=== PATIENT | female | born 1965 | race Caucasian/White ===

== ENCOUNTER 2024-11-19 05:56 | Day surgery (SDC) | payer OTHER ==
[2024-11-19 06:55] LABS: Absolute Neutrophil Ct (ANC) 3.14 x10^3/uL (1.56-6.13); BASOPHIL % 0.8 % (0.1-1.2); Basophil (Absolute #) 0.05 x10^3/uL (0.01-0.08); Eosinophil % 13.5 % (0.7-5.8); Hematocrit 37.7 % (34.1-44.9); Hemoglobin 12.8 g/dL (11.2-15.7); IMMATURE GRAN # 0.01 x10^3u/L (0.001-0.031); IMMATURE GRAN % 0.2 % (0.001-0.429); Lymphocyte (Absolute #) 1.44 x10^3/uL (1.18-3.74); Lymphocytes % 24.2 % (19.3-51.7); Mean Cell Volume 84.2 fL (79.4-94.8); Mean Corpuscular Hemoglobin 28.6 pg (25.6-32.2); Mean Platelet Volume 9.6 fL (9.4-12.3); Monocytes % 8.4 % (4.7-12.5); Neutrophil % 52.9 % (34.0-71.1); Platelet Count 201 x10^3/uL (182-369); Red Blood Count 4.48 x10^6/uL (3.93-5.22); Red Cell Distribution Width 12.7 % (11.7-14.4); White Blood Count 5.9 x10^3/uL (3.98-10.04)
[2024-11-19] MEDS: CEFAZOLIN 2 GM/100 ML NaCl 2 GM/100 ML IVPB IV SCH (06:56)
[2024-11-19] MEDS: Lactated Ringers 1,000 ML IV SCH (06:56)
[2024-11-19 07:07] LABS: ANION GAP 12.9 MEQ/L (5-15); Calcium 9.8 mg/dL (8.4-10.2); Creatinine 1 0.92 mg/dL (0.52-1.04); EST GLOMERULAR FILTRATION RATE 70.8 ML/MIN; Potassium 3.7 mmol/L (3.5-5.1)
[2024-11-19] MEDS ORDERED: TORAdol 30 mg Injection ONE (07:51)
[2024-11-19] MEDS ORDERED: dexAMETHasone sodium phosphate ONE (07:51)
[2024-11-19] MEDS ORDERED: Versed 2 MG/2 ML Injection ONE (07:51)
[2024-11-19] MEDS ORDERED: Xylocaine-Mpf 2% 5 Ml Vial ONE (07:51)
[2024-11-19] MEDS ORDERED: SUBLIMAZE 100 MCG/2 ML ONE (07:51)
[2024-11-19] MEDS ORDERED: propofoL IV ONE (07:51)
[2024-11-19] MEDS ORDERED: Zofran 4 MG/2 ML VIAL ONE (07:51)
[2024-11-19] MEDS ORDERED: Xylocaine 1% Vial 30 ML PF IJ ONE (08:03)
[2024-11-19] MEDS ORDERED: PHENYLEPHRINE HCL ONE (08:11)
[2024-11-19 09:42] VITALS: RESP 18; O2SAT 100
[2024-11-19 09:54] VITALS: BP 145/75; PULSE 67; TEMP 97.2
--- NOTE | 2024-11-20 18:49 | OP ---
SURGERY DATE/TIME: 11/19/2024 [id number] PREOPERATIVE DIAGNOSIS: Left carpal tunnel syndrome. POSTOPERATIVE DIAGNOSIS: Left carpal tunnel syndrome. PROCEDURE: Left carpal tunnel release. SURGEON: Siva Barnett II, DO. ANESTHESIA: General. DESCRIPTION OF PROCEDURE AND FINDINGS: The patient was identified and informed consent was obtained. The patient was taken to the operative suite where a general anesthetic was administered. Once an appropriate level of anesthesia had been obtained, tourniquet was placed high on the left upper extremity which was then prepped and draped in the usual sterile fashion. A standard time-out was taken. At this point, an incision was carried out from the distal wrist crease to the level of the fully abducted thumb web space just ulnar to the thenar crease. Skin was incised. Dissection was carried out through the subcutaneous tissue. Heiss retractors were positioned proximally and distally, and a Ragnell retractor was placed proximally under the skin and subcutaneous tissue. At this point, dissection was carried out through the superficial palmar fascia and the retractors were then repositioned. At this point, a fresh #15 blade was utilized to resect the transverse carpal ligament. Care was taken to stay on the far ulnar side of the wound. The nerve was noted to be on the far radial side of the wound. The nerve was noted to be somewhat flattened and hourglass shaped and slightly hyperemic. The motor branch was inspected. The floor was inspected. No masses or cysts. The antebrachial fascia was then split proximally for a distance of about 2 cm under direct vision such that the oil field operator's fingertip could be placed into the canal. The wound was then copiously irrigated and closed with interrupted 5-0 nylon suture. Adaptic, 4 x 4's, and a Yoni dressing applied. The patient was transferred to the cart and taken to the recovery room in satisfactory condition, having tolerated the procedure well.
== END 2024-11-19 10:08 | disposition home or self-care (01) ==
LOC: SDC 05:56
PROVIDERS: ATTEND Orthopaedic Surgery
DX: G56.02 Carpal tunnel syndrome, left upper limb (principal); E11.9 Type 2 diabetes mellitus without complications; Z85.3 Personal history of malignant neoplasm of breast
CPT/HCPCS: 36415; 64721; 80048; 82947; 85025; J0690; J1100; J1885; J2250; J2371; J2405; J2704; J3010

== ENCOUNTER 2025-01-17 16:19 | Observation (INO) | payer OTHER ==
[2025-01-17] MEDS ORDERED: SUBLIMAZE 100 MCG/2 ML ONE ×2 (16:31→19:59)
[2025-01-17] MEDS ORDERED: Zofran 4 MG/2 ML VIAL ONE (16:31)
[2025-01-17] MEDS: SUBLIMAZE 100 MCG/2 ML IV ONE ×2 (16:35→20:01)
[2025-01-17] MEDS: Zofran 4 MG/2 ML VIAL IV ONE (16:35)
[2025-01-17] MEDS ORDERED: Sodium Chloride 0.9% 1000 ML 1,000 ML ONE ×2 (16:36→18:32)
[2025-01-17] MEDS: Sodium Chloride 0.9% 1000 ML 1,000 ML IV STA ×2 (16:36→18:34)
--- NOTE | 2025-01-17 16:41 | ERPHSYRPT ---
- History of Present Illness Time Seen by Provider: 01/17/25 16:38 Historian: patient, family Exam Limitations: no limitations Patient Subjective Stated Complaint: Abdominal pain Physician History: 59-year-old female with multiple medical problems including hypertension, hypothyroidism, diabetes mellitus, breast cancer status post mastectomy/ch emotherapy presented in the ER with complains of left-sided abdominal pain since yesterday morning, continuous, worsening since today, but reports multiple episodes of nonprojectile, nonbilious vomiting without hematemesis. Is unable to hold food/liquids down. Denies any diarrhea or constipation. Feels weak fatigued tired and dehydrated. Allergies/Adverse Reactions: No Known Drug Allergies Allergy (Verified 01/17/25 16:29) Home Medications: Aspirin EC 81 mg [Ecotrin 81 mg] 81 mg PO DAILY 11/01/24 [History] Atorvastatin Calcium 40 mg PO DAILY 11/01/24 [History] Cyanocobalamin (Vitamin B-12) [Vitamin B12] 2,500 mcg PO DAILY 11/01/24 [History] Gabapentin [Neurontin ] 300 mg PO BID 11/01/24 [History] Glipizide 10 mg [Glucotrol 10 MG] 10 mg PO DAILY 11/01/24 [History] Levothyroxine Sodium 25 Mcg [Synthroid 25 Mcg] 50 mcg PO 2HRPRIOR 11/01/24 [History] Magnesium Oxide [Magnesium] 400 mg PO DAILY 11/01/24 [History] Semaglutide [Ozempic] 2 mg PO WEEKLY 11/01/24 [History] Semaglutide [Rybelsus] 14 mg PO BREAKFAST 11/01/24 [History] Liraglutide [Victoza 2-Uriel] 1.8 mg SQ DAILY 11/19/24 [History] Cetirizine HCl [Zyrtec] 10 mg PO DAILY 01/10/25 [History] Dapagliflozin/Metformin HCl [Xigduo Xr 10 mg-1,000 mg Tab] 10 mg PO DAILY 01/10/25 [History] Lisinopril 10 mg [Zestril 10 MG] 10 mg PO DAILY 01/10/25 [History] Hx Influenza Vaccination/Date Given: No Hx Pneumococcal Vaccination/Date Given: No Immunizations Up to Date: Yes Travel Risk - International Travel Have you traveled outside of the country in past 3 weeks: No - Emerging Infectious Disease Are you exhibiting symptoms associated with any current EIDs: No - Review of Systems Constitutional: No Symptoms Ears, Nose, & Throat: No Symptoms Respiratory: No Symptoms Cardiac: No Symptoms Abdominal/Gastrointestinal: Abdominal Pain, Nausea, Vomiting Genitourinary Symptoms: No Symptoms Skin: No Symptoms Neurological: No Symptoms Endocrine: No Symptoms - Past Medical History Pertinent Past Medical History: Yes Neurological History: No Pertinent History ENT History: No Pertinent History Cardiac History: No Pertinent History Respiratory History: No Pertinent History Endocrine Medical History: Diabetes Type II, Hypothyroidism Musculoskeletal History: No Pertinent History GI Medical History: No Pertinent History History: No Pertinent History Psycho-Social History: No Pertinent History Female Reproductive Disorders: Breast Cancer - Past Surgical History Past Surgical History: Yes Neuro Surgical History: No Pertinent History Cardiac: No Pertinent History Respiratory: No Pertinent History Gastrointestinal: No Pertinent History Genitourinary: No Pertinent History Musculoskeletal: Orthopedic Surgery Female Surgical History: Mastectomy, Breast Implant Other Surgical History: bilateral mastectomy. Carpal tunnel surgery left wrist - Social History Smoking Status: Never smoker Exposure to second hand smoke: No Drug Use: none - Social Determinants of Health Will the patient participate in the screening: Yes Do you worry about a steady place to live?: No Do you have any problems with any of the following?: No known problems In the past 12 months,have you had to go without utilities?: No Transportation Issues: No Has anyone in your support network made you feel unsafe?: No Have you or anyone in your house had to go w/o enough food: No - Nursing Vital Signs Nursing Vital Signs: Initial Vital Signs Temperature 97.5 F 01/17/25 16:30 Pulse Rate 116 H 01/17/25 16:30 Respiratory Rate 20 01/17/25 16:30 Blood Pressure 139/72 01/17/25 16:30 O2 Sat by Pulse Oximetry 97 01/17/25 16:30 Pain Scale Pain Intensity 1 - Physical Exam General Appearance: no apparent distress, alert Eye Exam: PERRL/EOMI Ears, Nose, Throat Exam: normal ENT inspection Neck Exam: normal inspection, supple, full range of motion Respiratory Exam: normal breath sounds, lungs clear Cardiovascular Exam: normal heart sounds, tachycardia Gastrointestinal/Abdomen Exam: soft, tenderness (Left side), guarding Back Exam: normal inspection, normal range of motion Neurologic Exam: alert, oriented x 3, cooperative Skin Exam: normal color SpO2 Interpretation: normal SpO2: 97 O2 Delivery: Room Air - Course EKG Interpreted by Me: RATE ([id number]), Sinus Tach, NORMAL AXIS, NORMAL INTERVALS, Q- wave, Non-specific ST Changes Ordered Tests: Active Orders 24 hr Category Date Time Status Code Status Order ROUTINE Care 01/17/25 22:32 Active IV Insertion STAT Care 01/17/25 16:31 Completed NPO (ED) STAT Care 01/17/25 16:[address] in Observation ROUTINE Care 01/17/25 22:32 Active ABDOMEN AND PELVIS W/0 CONTRAS [CT] Stat Exams 01/17/25 16:31 Taken CBC W DIFF Stat Lab 01/17/25 16:35 Completed CMP Stat Lab 01/17/25 16:35 Completed CMP Stat Lab 01/17/25 20:30 Completed LIPASE Stat Lab 01/17/25 16:35 Completed Lactic Acid Stat Lab 01/17/25 19:24 Completed POCT GLUCOSE Stat Lab 01/17/25 21:17 Completed TROPONIN Q4H Lab 01/17/25 16:35 Completed TROPONIN Q4H Lab 01/17/25 20:30 Completed UA W/RFX UR CULTURE Stat Lab 01/17/25 19:40 Completed VBG [VENOUS BLOOD GAS] Stat Lab 01/17/25 17:11 Completed Medication Summary Generic Name Dose Route Start Last Admin Trade Name Freq PRN Reason Stop Dose Admin Acetaminophen 650 mg 01/17/25 22:32 Acetaminophen 325 Mg Tablet PO 02/16/25 22:31 Q6H PRN PRN PAIN AND/OR FEVER Aspirin 81 mg 01/18/25 10:00 Aspirin 81 Mg Tablet.Ec PO 02/17/25 09:59 DAILY [facility] Atorvastatin Calcium 40 mg 01/18/25 10:00 Atorvastatin Calcium 40 Mg Tablet PO 02/17/25 09:59 DAILY [facility] Dextrose 25 ml 01/18/25 04:03 01/18/25 04:06 Dextrose 50%-Water 50 Ml Abboject IV 01/18/25 04:04 25 ml STAT ONE Administration Enoxaparin Sodium 40 mg 01/18/25 10:00 Enoxaparin Sodium 40 Mg/0.4 Ml Syringe SQ 02/17/25 09:59 DAILY [facility] Gabapentin 300 mg 01/18/25 10:00 Gabapentin 300 Mg Capsule PO 02/17/25 09:59 BID [facility] INSULIN REGULAR IN 0.9 % NACL 100 unit in 100 mls @ 3 drops/hr 01/17/25 21:28 01/18/25 04:38 Myxredlin 100 Unit/100 Ml Bag IV 02/16/25 21:27 6 drops/hr .Q24H PRN 6 drops/hr HYPERGLYCEMIA Titration Protocol Potassium Chloride/Dextrose/Sod Cl 1,000 mls @ 125 mls/hr 01/18/25 04:00 01/18/25 04:05 D5w/0.45ns W/ 20meq Kcl 1000 Ml IV 02/17/25 03:59 250 mls/hr .Q8H [facility] Infusion Levothyroxine Sodium 50 mcg 01/17/25 23:30 Levothyroxine Sodium 25 Mcg Tablet PO 02/16/25 23:29 2HRPRIOR [facility] Lisinopril 10 mg 01/18/25 10:00 Lisinopril 10 Mg Tablet PO 02/17/25 09:59 DAILY [facility] Morphine Sulfate 4 mg 01/17/25 23:34 Morphine Sulfate 4 Mg/Ml Injection IV 01/22/25 23:33 Q3H PRN PRN SEVERE PAIN Ondansetron HCl 4 mg 01/17/25 23:34 Ondansetron Hcl 4 Mg/2 Ml Vial IV 02/16/25 23:33 Q6H PRN PRN NAUSEA/VOMITING Senna/Docusate Sodium 1 udtab 01/17/25 23:41 01/18/25 00:32 Senna/Docusate Sodium 1 Udtab Tablet PO 02/16/25 23:40 1 udtab BID [facility] Administration Discontinued Medications Generic Name Dose Route Start Last Admin Trade Name Freq PRN Reason Stop Dose Admin Fentanyl Citrate 50 mcg 01/17/25 16:31 01/17/25 16:35 Fentanyl Citrate 100 Mcg/2 Ml* Vial IV 01/17/25 16:32 50 mcg STAT ONE Administration Fentanyl Citrate Confirm 01/17/25 16:31 Fentanyl Citrate 100 Mcg/2 Ml* Vial Administered 01/17/25 16:32 Dose 100 mcg .ROUTE .STK-MED ONE Fentanyl Citrate 50 mcg 01/17/25 19:55 01/17/25 20:01 Fentanyl Citrate 100 Mcg/2 Ml* Vial IV 01/17/25 19:56 50 mcg STAT ONE Administration Fentanyl Citrate Confirm 01/17/25 19:59 Fentanyl Citrate 100 Mcg/2 Ml* Vial Administered 01/17/25 20:00 Dose 100 mcg .ROUTE .STK-MED ONE Sodium Chloride 1,000 mls @ 999 mls/hr 01/17/25 16:31 01/17/25 18:01 Sodium Chloride 0.9% 1000 Ml IV 01/17/25 17:31 Infused .Q1H1M STA Infusion Sodium Chloride Confirm 01/17/25 16:36 Sodium Chloride 0.9% 1000 Ml Administered 01/17/25 16:37 Dose 1,000 mls @ ud .ROUTE .STK-MED ONE Sodium Chloride 1,000 mls @ 999 mls/hr 01/17/25 18:29 01/17/25 20:16 Sodium Chloride 0.9% 1000 Ml IV 01/17/25 19:29 Infused .Q1H1M STA Infusion Sodium Chloride Confirm 01/17/25 18:32 Sodium Chloride 0.9% 1000 Ml Administered 01/17/25 18:33 Dose 1,000 mls @ ud .ROUTE .STK-MED ONE Dextrose/Sodium Chloride 1,000 mls @ 200 mls/hr 01/17/25 21:30 01/17/25 23:45 Dextrose 5% -0.45 Nacl 1000 Ml IV 02/16/25 21:29 200 mls/hr .Q5H [facility] Infusion Dextrose/Sodium Chloride Confirm 01/17/25 21:37 Dextrose 5% -0.45 Nacl 1000 Ml Administered 01/17/25 21:38 Dose 1,000 mls @ ud IV .STK-MED ONE Ondansetron HCl 4 mg 01/17/25 16:31 01/17/25 16:35 Ondansetron Hcl 4 Mg/2 Ml Vial IV 01/17/25 16:32 4 mg STAT ONE Administration Ondansetron HCl Confirm 01/17/25 16:31 Ondansetron Hcl 4 Mg/2 Ml Vial Administered 01/17/25 16:32 Dose 4 mg .ROUTE .STK-MED ONE Lab/Rad Data: Laboratory Result Diagrams 01/17/25 16:35 01/17/25 20:30 Laboratory Results 01/17/25 01/17/25 01/17/25 Range/Units 21:17 20:30 19:40 WBC (3.98-10.04) x10^3/uL RBC (3.93-5.22) x10^6/uL Hgb (11.2-15.7) g/dL Hct (34.1-44.9) % MCV (79.4-94.8) fL MCH (25.6-32.2) pg MCHC (32.2-35.5) g/dL RDW (11.7-14.4) % Plt Count (182-369) x10^3/uL MPV (9.4-12.3) fL Gran % (34.0-71.1) % Immature Gran % (Auto) (0.001-0.429) % Nucleat RBC Rel Count (0.00-0.2) % Eos # (Auto) (0.04-0.36) x10^3/uL Immature Gran # (Auto) (0.001-0.031) x10^3u/L Absolute Lymphs (auto) (1.18-3.74) x10^3/uL Absolute Monos (auto) (0.24-0.86) x10^3/uL Absolute Nucleated RBC (0.00-0.012) x10^3u/L Lymphocytes % (19.3-51.7) % Monocytes % (4.7-12.5) % Eosinophils % (0.7-5.8) % Basophils % (0.1-1.2) % Absolute Granulocytes (1.56-6.13) x10^3/uL Basophils # (0.01-0.08) x10^3/uL pO2/FiO2 Ratio % VBG pH (7.32-7.42) VBG pCO2 at Pat Temp (42-55) mm/Hg VBG pO2 at Pat Temp (25-40) mm/Hg VBG HCO3 (22-28) meq/L VBG O2 Sat (Teresa) (95-100) VBG Base Excess (-2.0-2.0) VBG Hemoglobin VBG Carboxyhemoglobin (0.0-6.9) % T HGB POC Potassium (3.5-5.1) Sodium 141 (135-145) mmol/L Potassium 4.3 (3.5-5.1) mmol/L Chloride 111 H D (98-107) mmol/L Carbon Dioxide 10 L* (22-30) mmol/L Anion Gap 23.0 H (5-15) MEQ/L BUN 42 H (7-17) mg/dL Creatinine 0.97 (0.52-1.04) mg/dL Estimated GFR 66.5 ML/MIN Glucose 224 H (74-106) mg/dL POC Glucometer 198 H (74 to 106) mg/dL Lactic Acid (0.4-2.0) Calcium 8.6 D (8.4-10.2) mg/dL Total Bilirubin 0.70 (0.2-1.3) mg/dL AST 27 (14-36) U/L ALT 18 (0-35) U/L Alkaline Phosphatase 67 (38-126) U/L Troponin I < 0.012 (0.000-0.033) ng/mL Serum Total Protein 6.4 (6.3-8.2) g/dL Albumin 4.1 (3.5-5.0) g/dL Lipase (23-300) U/L Urine Color Yellow (Yellow) Urine Appearance Clear (Clear) Urine pH 5.0 (4.6-8.0) Ur Specific [place] 1.025 (1.005-1.030) Urine Protein Negative (Negative) Urine Glucose (UA) >=1000 A (Negative) mg/dL Urine Ketones 80 A (Negative) Urine Blood Negative (Negative) Urine Nitrite Negative (Negative) Urine Bilirubin Negative (Negative) Urine Urobilinogen 0.2 (0.2) mg/dL Ur Leukocyte Esterase Negative (Negative) U Hyaline Cast (Auto) NONE SEEN (0-2) /LPF Urine Microscopic RBC 0-2 (0-5) /HPF Urine Microscopic WBC 0-2 (0-5) /HPF Ur Epithelial Cells None Seen (None Seen) /HPF Urine Bacteria None Seen (None Seen) /HPF Urine Culture Reflexed NO (NO) 01/17/25 01/17/25 01/17/25 Range/Units 19:24 17:11 16:35 WBC (3.98-10.04) x10^3/uL RBC (3.93-5.22) x10^6/uL Hgb (11.2-15.7) g/dL Hct (34.1-44.9) % MCV (79.4-94.8) fL MCH (25.6-32.2) pg MCHC (32.2-35.5) g/dL RDW (11.7-14.4) % Plt Count (182-369) x10^3/uL MPV (9.4-12.3) fL Gran % (34.0-71.1) % Immature Gran % (Auto) (0.001-0.429) % Nucleat RBC Rel Count (0.00-0.2) % Eos # (Auto) (0.04-0.36) x10^3/uL Immature Gran # (Auto) (0.001-0.031) x10^3u/L Absolute Lymphs (auto) (1.18-3.74) x10^3/uL Absolute Monos (auto) (0.24-0.86) x10^3/uL Absolute Nucleated RBC (0.00-0.012) x10^3u/L Lymphocytes % (19.3-51.7) % Monocytes % (4.7-12.5) % Eosinophils % (0.7-5.8) % Basophils % (0.1-1.2) % Absolute Granulocytes (1.56-6.13) x10^3/uL Basophils # (0.01-0.08) x10^3/uL pO2/FiO2 Ratio 21.0 % VBG pH 7.34 (7.32-7.42) VBG pCO2 at Pat Temp 32 L (42-55) mm/Hg VBG pO2 at Pat Temp 53 H (25-40) mm/Hg VBG HCO3 17.3 L (22-28) meq/L VBG O2 Sat (Teresa) 84.9 L (95-100) VBG Base Excess -7.3 L (-2.0-2.0) VBG Hemoglobin 15.4 VBG Carboxyhemoglobin 3.3 (0.0-6.9) % T HGB POC Potassium 4.6 (3.5-5.1) Sodium (135-145) mmol/L Potassium (3.5-5.1) mmol/L Chloride (98-107) mmol/L Carbon Dioxide (22-30) mmol/L Anion Gap (5-15) MEQ/L BUN (7-17) mg/dL Creatinine (0.52-1.04) mg/dL Estimated GFR ML/MIN Glucose (74-106) mg/dL POC Glucometer (74 to 106) mg/dL Lactic Acid 1.2 (0.4-2.0) Calcium (8.4-10.2) mg/dL Total Bilirubin (0.2-1.3) mg/dL AST (14-36) U/L ALT (0-35) U/L Alkaline Phosphatase (38-126) U/L Troponin I < 0.012 (0.000-0.033) ng/mL Serum Total Protein (6.3-8.2) g/dL Albumin (3.5-5.0) g/dL Lipase (23-300) U/L Urine Color (Yellow) Urine Appearance (Clear) Urine pH (4.6-8.0) Ur Specific [place] (1.005-1.030) Urine Protein (Negative) Urine Glucose (UA) (Negative) mg/dL Urine Ketones (Negative) Urine Blood (Negative) Urine Nitrite (Negative) Urine Bilirubin (Negative) Urine Urobilinogen (0.2) mg/dL Ur Leukocyte Esterase (Negative) U Hyaline Cast (Auto) (0-2) /LPF Urine Microscopic RBC (0-5) /HPF Urine Microscopic WBC (0-5) /HPF Ur Epithelial Cells (None Seen) /HPF Urine Bacteria (None Seen) /HPF Urine Culture Reflexed (NO) 01/17/25 01/17/25 Range/Units 16:35 16:35 WBC 14.2 H (3.98-10.04) x10^3/uL RBC 5.05 (3.93-5.22) x10^6/uL Hgb 14.6 (11.2-15.7) g/dL Hct 43.9 (34.1-44.9) % MCV 86.9 (79.4-94.8) fL MCH 28.9 (25.6-32.2) pg MCHC 33.3 (32.2-35.5) g/dL RDW 13.3 (11.7-14.4) % Plt Count 336 (182-369) x10^3/uL MPV 10.3 (9.4-12.3) fL Gran % 80.6 H (34.0-71.1) % Immature Gran % (Auto) 0.2 (0.001-0.429) % Nucleat RBC Rel Count 0.0 (0.00-0.2) % Eos # (Auto) 0.01 L (0.04-0.36) x10^3/uL Immature Gran # (Auto) 0.03 (0.001-0.031) x10^3u/L Absolute Lymphs (auto) 1.25 (1.18-3.74) x10^3/uL Absolute Monos (auto) 1.41 H (0.24-0.86) x10^3/uL Absolute Nucleated RBC 0.00 (0.00-0.012) x10^3u/L Lymphocytes % 8.8 L (19.3-51.7) % Monocytes % 10.0 (4.7-12.5) % Eosinophils % 0.1 L (0.7-5.8) % Basophils % 0.3 (0.1-1.2) % Absolute Granulocytes 11.43 H (1.56-6.13) x10^3/uL Basophils # 0.04 (0.01-0.08) x10^3/uL pO2/FiO2 Ratio % VBG pH (7.32-7.42) VBG pCO2 at Pat Temp (42-55) mm/Hg VBG pO2 at Pat Temp (25-40) mm/Hg VBG HCO3 (22-28) meq/L VBG O2 Sat (Teresa) (95-100) VBG Base Excess (-2.0-2.0) VBG Hemoglobin VBG Carboxyhemoglobin (0.0-6.9) % T HGB POC Potassium (3.5-5.1) Sodium 143 (135-145) mmol/L Potassium 4.4 (3.5-5.1) mmol/L Chloride 99 (98-107) mmol/L Carbon Dioxide 15 L* (22-30) mmol/L Anion Gap 34.1 H (5-15) MEQ/L BUN 46 H (7-17) mg/dL Creatinine 1.37 H (0.52-1.04) mg/dL Estimated GFR 43.9 ML/MIN Glucose 324 H (74-106) mg/dL POC Glucometer (74 to 106) mg/dL Lactic Acid (0.4-2.0) Calcium 10.3 H (8.4-10.2) mg/dL Total Bilirubin 1.00 (0.2-1.3) mg/dL AST 30 (14-36) U/L ALT 29 (0-35) U/L Alkaline Phosphatase 104 (38-126) U/L Troponin I (0.000-0.033) ng/mL Serum Total Protein 8.4 H (6.3-8.2) g/dL Albumin 5.4 H (3.5-5.0) g/dL Lipase 79 (23-300) U/L Urine Color (Yellow) Urine Appearance (Clear) Urine pH (4.6-8.0) Ur Specific [place] (1.005-1.030) Urine Protein (Negative) Urine Glucose (UA) (Negative) mg/dL Urine Ketones (Negative) Urine Blood (Negative) Urine Nitrite (Negative) Urine Bilirubin (Negative) Urine Urobilinogen (0.2) mg/dL Ur Leukocyte Esterase (Negative) U Hyaline Cast (Auto) (0-2) /LPF Urine Microscopic RBC (0-5) /HPF Urine Microscopic WBC (0-5) /HPF Ur Epithelial Cells (None Seen) /HPF Urine Bacteria (None Seen) /HPF Urine Culture Reflexed (NO) - Progress Progress: improved, pain not gone completely Progress Note: 01/17/25 21:31 59-year-old diabetic is evaluated in the ER for left-sided abdominal pain with nausea vomiting and feeling weak tired and dehydrated. Patient was tachycardic on presentation, given fluid bolus along with symptomatic treatment, on reevaluation her pain is better but not completely resolved. Workup showed white count of 14, chemistries with creatinine of 1.37/baseline 0.9 to and a gap of 34, bicarb of 15. Patient venous pH is 7.34. Does have mild to moderate ketones in the urine. Glucoses in the 360s. Lactate is 1.2, after 2 L fluid bolus her gap improved to 23, bicarb of 10, potassium of 4.3 and creatinine improved back to baseline 0.97. I have obtained CT abdomen pelvis without contrast which shows finding consistent with ileus/enteritis, constipation with mild impaction. Patient does report having history of constipation since her cancer treatment but does report having bowel movement even today. I have discussed workup with Dr. Sears, recommended starting on insulin drip with D5 half-normal saline at 125/h and insulin drip at 3 units/h until gap is closed and bicarb is improved. It seems more of a secondary to dehydration but with continuous low bicarb I believe it would be reasonable. I have discussed the results of workup with patient and family and plan of admission with insulin drip which they understand and agree. Complexity of problem addressed: High acuity Complexity of data reviewed/analyzed: Extensive Risk of complications/morbidity/mortality with manage condition: High risk Discussed with Dr.: Everette Will see patient in: hospital (observation) Counseled pt/family regarding: lab results, diagnosis, need for follow-up, rad results Medical Desision Making - Independent Historian Additional History obtained from: Spouse - Discussion of managment Care discussed with:: hospitalist (Dr. Sears) Reviewed:: Test results, Need for additional workup Agreed on:: Treatment plan Will see patient: in hospital - Diagnostic Testing Diagnostic test were ordered, analyzed, and reviewed by me: Yes Radiological Interpretation: Reviewed by me, Teleradiologist Report - Risk of complications The pt has a mod risk of morbidity or mortality based on: Need for prescription drug management The pt has a high risk of morbidity or mortality based on: Drug therapy r equiring intensive monitoring for toxicity, Decision regarding hospitilization or escalation of hosp level of care - Departure Departure Disposition: Observation Clinical Impression: DKA (diabetic ketoacidosis), RUBIA (acute kidney injury), Dehydration, Ileus Condition: Stable Critical Care Time: Yes Critical Care Time(excluding separately billable procedures): Critical 30-74 mins
[2025-01-17 16:43] LABS: Absolute Neutrophil Ct (ANC) 11.43 x10^3/uL (1.56-6.13); BASOPHIL % 0.3 % (0.1-1.2); Basophil (Absolute #) 0.04 x10^3/uL (0.01-0.08); Eosinophil % 0.1 % (0.7-5.8); Eosinophil (Absolute #) 0.01 x10^3/uL (0.04-0.36); Hematocrit 43.9 % (34.1-44.9); Hemoglobin 14.6 g/dL (11.2-15.7); IMMATURE GRAN # 0.03 x10^3u/L (0.001-0.031); IMMATURE GRAN % 0.2 % (0.001-0.429); Lymphocyte (Absolute #) 1.25 x10^3/uL (1.18-3.74); Lymphocytes % 8.8 % (19.3-51.7); Mean Cell Volume 86.9 fL (79.4-94.8); Mean Corpuscular Hemoglobin 28.9 pg (25.6-32.2); Mean Corpuscular Hgb Concent. 33.3 g/dL (32.2-35.5); Mean Platelet Volume 10.3 fL (9.4-12.3); Monocyte (Absolute #) 1.41 x10^3/uL (0.24-0.86); Neutrophil % 80.6 % (34.0-71.1); Platelet Count 336 x10^3/uL (182-369); Red Blood Count 5.05 x10^6/uL (3.93-5.22); Red Cell Distribution Width 13.3 % (11.7-14.4); White Blood Count 14.2 x10^3/uL (3.98-10.04)
[2025-01-17 16:54] LABS: ALBUMIN 5.4 g/dL (3.5-5.0); ANION GAP 34.1 MEQ/L (5-15); Calcium 10.3 mg/dL (8.4-10.2); Creatinine 1 1.37 mg/dL (0.52-1.04); EST GLOMERULAR FILTRATION RATE 43.9 ML/MIN; Potassium 4.4 mmol/L (3.5-5.1); Total Protein 8.4 g/dL (6.3-8.2)
[2025-01-17 17:14] LABS: VBG BASE EXCESS -7.3 (-2.0-2.0); VBG CARBOXYHEMOGLOBIN 3.3 % T HGB (0.0-6.9); VBG HCO3- 17.3 meq/L (22-28); VBG HEMOGLOBIN 15.4; VBG O2 SATURATION 84.9 (95-100); VBG POTASSIUM 4.6 (3.5-5.1); VBG pH 7.34 (7.32-7.42)
[2025-01-17 19:51] LABS: Appearance Clear (Clear); Bacteria None Seen /HPF (None Seen); Bilirubin Negative (Negative); Blood Negative (Negative); Epithelial Cells None Seen /HPF (None Seen); Glucose, Urine >=1000 mg/dL (Negative); Hyaline Casts NONE SEEN /LPF (0-2); Ketones 80 (Negative); Leukocyte Esterase Negative (Negative); Nitrite Negative (Negative); Protein,Urine Dip Negative (Negative); RBC 0-2 /HPF (0-5); Specific Gravity 1.025 (1.005-1.030); Urobilinogen 0.2 mg/dL (0.2); WBC 0-2 /HPF (0-5)
[2025-01-17 21:00] LABS: ALBUMIN 4.1 g/dL (3.5-5.0); ALKALINE PHOSPHATASE 67 U/L (38-126); BLOOD UREA NITROGEN 42 mg/dL (7-17); CHLORIDE 111 mmol/L (98-107); Calcium 8.6 mg/dL (8.4-10.2); Creatinine 1 0.97 mg/dL (0.52-1.04); EST GLOMERULAR FILTRATION RATE 66.5 ML/MIN; Glucose 224 mg/dL (74-106); Potassium 4.3 mmol/L (3.5-5.1); SGOT/AST 27 U/L (14-36); SGPT/ALT 18 U/L (0-35); SODIUM 141 mmol/L (135-145); TROPONIN < 0.012 ng/mL (0.000-0.033); Total Protein 6.4 g/dL (6.3-8.2)
[2025-01-17 21:06] LABS: Carbon Dioxide 10 mmol/L (22-30)
[2025-01-17] MEDS ORDERED: Dextrose 5% -0.45 NaCl 1000 ML 1,000 ML IV ONE (21:37)
[2025-01-17] MEDS: Dextrose 5% -0.45 NaCl 1000 ML 1,000 ML IV SCH (21:38)
[2025-01-17] MEDS: MYXREDLIN 100 UNIT/100 ML BAG 100 UNIT/100 ML PLAST..BAG IV PRN (21:39)
[2025-01-17] MEDS ORDERED: TYLENOL 325 MG PO PRN (22:32)
[2025-01-17 23:25] LABS: ANION GAP 23.5 MEQ/L (5-15); Calcium 9.2 mg/dL (8.4-10.2); Creatinine 1 1.1 mg/dL (0.52-1.04); EST GLOMERULAR FILTRATION RATE 57.2 ML/MIN
[2025-01-17] MEDS ORDERED: SYNTHROID 25 MCG PO SCH (23:30)
[2025-01-17] MEDS ORDERED: MORPHINE SULFATE 4 MG INJ IV PRN (23:34)
[2025-01-17] MEDS ORDERED: Zofran 4 MG/2 ML VIAL IV PRN (23:34)
--- NOTE | 2025-01-17 23:47 | PCM.HP ---
History of Present Illness - Chief Complaint Chief Complaint: nausea, abdominal pain Date: 01/17/25 History of Present Illness: 59-year-old woman with history of diabetes, hypertension, hypothyroidism, and remote history of breast cancer, who presents with 1 to 2 days of nausea, vomiting, and abdominal pain. Patient first noted cramping abdominal pains just underneath the left rib cage, leading to severe vomiting. Pain when she became more aching, associated with warmth over that site, and somewhat improved nausea. She has not noted any abdominal distention, and notes that she had a BM this morning. She has had poor appetite and no p.o. intake for the last 2 days except for ice chips, with some dry mouth but denies lightheadedness on standing. She has not been any of her medications except for her Victoza since Tuesday. Denies any fevers, chills, or sick contacts. However, she has noted some severe stress recently because her daughter has had recurrent Hodgkin lymphoma and is back on chemotherapy. - Review of Systems All Other Systems: Reviewed and Negative Medications & Allergies Home Medications: Home Medication List Aspirin EC 81 mg [Ecotrin 81 mg] 81 mg PO DAILY 11/01/24 [History Confirmed 01/17/25] Atorvastatin Calcium 40 mg PO DAILY 11/01/24 [History Confirmed 01/17/25] Cyanocobalamin (Vitamin B-12) [Vitamin B12] 2,500 mcg PO DAILY 11/01/24 [History Confirmed 01/17/25] Gabapentin [Neurontin ] 300 mg PO BID 11/01/24 [History Confirmed 01/17/25] Glipizide 10 mg [Glucotrol 10 MG] 10 mg PO DAILY 11/01/24 [History Confirmed 01/17/25] Levothyroxine Sodium 25 Mcg [Synthroid 25 Mcg] 50 mcg PO 2HRPRIOR 11/01/24 [History Confirmed 01/17/25] Magnesium Oxide [Magnesium] 400 mg PO DAILY 11/01/24 [History Confirmed 01/17/25] Semaglutide [Ozempic] 2 mg PO WEEKLY 11/01/24 [History Confirmed 01/17/25] Semaglutide [Rybelsus] 14 mg PO BREAKFAST 11/01/24 [History Confirmed 01/17/25] Liraglutide [Victoza 2-Uriel] 1.8 mg SQ DAILY 11/19/24 [History Confirmed 01/17/25] Cetirizine HCl [Zyrtec] 10 mg PO DAILY 01/10/25 [History Confirmed 01/17/25] Dapagliflozin/Metformin HCl [Xigduo Xr 10 mg-1,000 mg Tab] 10 mg PO DAILY 01/10/25 [History Confirmed 01/17/25] Lisinopril 10 mg [Zestril 10 MG] 10 mg PO DAILY 01/10/25 [History Confirmed 01/17/25] Allergies/Adverse Reactions: Allergies Allergy/AdvReac Type Severity Reaction Status Date / Time No Known Drug Allergies Allergy Verified 01/17/25 16:29 - Past Medical History Past Medical History: Yes Neurological History: No Pertinent History ENT History: Cataracts Cardiac History: Hypertension Respiratory History: No Pertinent History Endocrine Medical History: Diabetes Type II, Hypothyroidism Musculoskelatal History: Other GI Medical History: No Pertinent History History: No Pertinent History Pyscho-Social History: Anxiety Reproductive Disorders: Breast Cancer, Other Comment: AMADO carpal tunnel; Lymph nodes removed - Past Surgical History Past Surgical History: Yes Neuro Surgical History: No Pertinent History Cardiac History: No Pertinent History Respiratory Surgery: No Pertinent History GI Surgical History: No Pertinent History Genitourinary Surgical Hx: No Pertinent History Musculskeletal Surgical Hx: Orthopedic Surgery Female Surgical History: Mastectomy, Breast Implant Other Surgical History: bilateral mastectomy & 10 Lymph nodes removed L side. Carpal tunnel surgery left wrist Significant Family History: no pertinent family hx - Social History Smoking Status: Never smoker Exposure to second hand smoke: No Alcohol: None Drug Use: none - Social Determinants of Health Will the patient participate in the screening: Yes Do you worry about a steady place to live?: No Do you have any problems with any of the following?: No known problems In the past 12 months,have you had to go without utilities?: No Have you or anyone in your house had to go without enough: No Transportation Issues: No Has anyone in your support network made you feel unsafe?: No - Physical Exam Vital Signs: Vital Signs - 24 hr Temp Pulse Resp BP BP Pulse Ox 01/17/25 22:02 97 01/17/25 22:00 114 H 21 102/58 98 01/17/25 21:30 115 H 20 109/54 98 01/17/25 21:00 117 H 21 106/57 99 01/17/25 20:59 117 H 19 98 01/17/25 20:50 115 H 20 97 01/17/25 20:00 111 H 24 134/67 99 01/17/25 19:39 113 H 21 144/66 100 01/17/25 19:00 110 H 21 119/64 98 01/17/25 18:30 112 H 22 115/53 98 01/17/25 18:00 111 H 16 119/61 97 01/17/25 17:30 108 H 16 123/65 100 01/17/25 17:26 104 H 16 141/67 100 01/17/25 17:00 100 H 16 130/68 100 01/17/25 16:30 97.5 F 104 H 18 139/72 137/72 100 Physical Exam GEN: Sitting up in bed in no acute distress. HENT: Normocephalic, atraumatic. Dry mucous membranes. EYES: Normal inspection, anicteric sclera, extraocular movements intact. NECK: Supple, full range of motion CV: Regular rate and rhythm, no murmurs, no gallops. No JVD or edema. PULM: Clear to auscultation bilaterally, no work of breathing. On room air. ABD: Nondistended, nontender. MSK: No joint effusions, full range of motion SKIN: No rashes, normal color. NEURO: Face symmetric, no focal motor or sensory deficits. PSYCH: Alert, oriented x 3 Results - Labs Lab/Micro Results: Lab Results-Last 24 Hours 01/17/25 01/17/25 01/17/25 Range/Units 16:35 16:35 16:35 WBC 14.2 H (3.98-10.04) x10^3/uL RBC 5.05 (3.93-5.22) x10^6/uL Hgb 14.6 (11.2-15.7) g/dL Hct 43.9 (34.1-44.9) % MCV 86.9 (79.4-94.8) fL MCH 28.9 (25.6-32.2) pg MCHC 33.3 (32.2-35.5) g/dL RDW 13.3 (11.7-14.4) % Plt Count 336 (182-369) x10^3/uL MPV 10.3 (9.4-12.3) fL Gran % 80.6 H (34.0-71.1) % Immature Gran % (Auto) 0.2 (0.001-0.429) % Nucleat RBC Rel Count 0.0 (0.00-0.2) % Eos # (Auto) 0.01 L (0.04-0.36) x10^3/uL Immature Gran # (Auto) 0.03 (0.001-0.031) x10^3u/L Absolute Lymphs (auto) 1.25 (1.18-3.74) x10^3/uL Absolute Monos (auto) 1.41 H (0.24-0.86) x10^3/uL Absolute Nucleated RBC 0.00 (0.00-0.012) x10^3u/L Lymphocytes % 8.8 L (19.3-51.7) % Monocytes % 10.0 (4.7-12.5) % Eosinophils % 0.1 L (0.7-5.8) % Basophils % 0.3 (0.1-1.2) % Absolute Granulocytes 11.43 H (1.56-6.13) x10^3/uL Basophils # 0.04 (0.01-0.08) x10^3/uL pO2/FiO2 Ratio % VBG pH (7.32-7.42) VBG pCO2 at Pat Temp (42-55) mm/Hg VBG pO2 at Pat Temp (25-40) mm/Hg VBG HCO3 (22-28) meq/L VBG O2 Sat (Teresa) (95-100) VBG Base Excess (-2.0-2.0) VBG Hemoglobin VBG Carboxyhemoglobin (0.0-6.9) % T HGB POC Potassium (3.5-5.1) Sodium 143 (135-145) mmol/L Potassium 4.4 (3.5-5.1) mmol/L Chloride 99 (98-107) mmol/L Carbon Dioxide 15 L* (22-30) mmol/L Anion Gap 34.1 H (5-15) MEQ/L BUN 46 H (7-17) mg/dL Creatinine 1.37 H (0.52-1.04) mg/dL Estimated GFR 43.9 ML/MIN Glucose 324 H (74-106) mg/dL POC Glucometer (74 to 106) mg/dL Lactic Acid (0.4-2.0) Calcium 10.3 H (8.4-10.2) mg/dL Total Bilirubin 1.00 (0.2-1.3) mg/dL AST 30 (14-36) U/L ALT 29 (0-35) U/L Alkaline Phosphatase 104 (38-126) U/L Troponin I < 0.012 (0.000-0.033) ng/mL Serum Total Protein 8.4 H (6.3-8.2) g/dL Albumin 5.4 H (3.5-5.0) g/dL Lipase 79 (23-300) U/L Urine Color (Yellow) Urine Appearance (Clear) Urine pH (4.6-8.0) Ur Specific [place] (1.005-1.030) Urine Protein (Negative) Urine Glucose (UA) (Negative) mg/dL Urine Ketones (Negative) Urine Blood (Negative) Urine Nitrite (Negative) Urine Bilirubin (Negative) Urine Urobilinogen (0.2) mg/dL Ur Leukocyte Esterase (Negative) U Hyaline Cast (Auto) (0-2) /LPF Urine Microscopic RBC (0-5) /HPF Urine Microscopic WBC (0-5) /HPF Ur Epithelial Cells (None Seen) /HPF Urine Bacteria (None Seen) /HPF Urine Culture Reflexed (NO) 01/17/25 01/17/25 01/17/25 Range/Units 17:11 19:24 19:40 WBC (3.98-10.04) x10^3/uL RBC (3.93-5.22) x10^6/uL Hgb (11.2-15.7) g/dL Hct (34.1-44.9) % MCV (79.4-94.8) fL MCH (25.6-32.2) pg MCHC (32.2-35.5) g/dL RDW (11.7-14.4) % Plt Count (182-369) x10^3/uL MPV (9.4-12.3) fL Gran % (34.0-71.1) % Immature Gran % (Auto) (0.001-0.429) % Nucleat RBC Rel Count (0.00-0.2) % Eos # (Auto) (0.04-0.36) x10^3/uL Immature Gran # (Auto) (0.001-0.031) x10^3u/L Absolute Lymphs (auto) (1.18-3.74) x10^3/uL Absolute Monos (auto) (0.24-0.86) x10^3/uL Absolute Nucleated RBC (0.00-0.012) x10^3u/L Lymphocytes % (19.3-51.7) % Monocytes % (4.7-12.5) % Eosinophils % (0.7-5.8) % Basophils % (0.1-1.2) % Absolute Granulocytes (1.56-6.13) x10^3/uL Basophils # (0.01-0.08) x10^3/uL pO2/FiO2 Ratio 21.0 % VBG pH 7.34 (7.32-7.42) VBG pCO2 at Pat Temp 32 L (42-55) mm/Hg VBG pO2 at Pat Temp 53 H (25-40) mm/Hg VBG HCO3 17.3 L (22-28) meq/L VBG O2 Sat (Teresa) 84.9 L (95-100) VBG Base Excess -7.3 L (-2.0-2.0) VBG Hemoglobin 15.4 VBG Carboxyhemoglobin 3.3 (0.0-6.9) % T HGB POC Potassium 4.6 (3.5-5.1) Sodium (135-145) mmol/L Potassium (3.5-5.1) mmol/L Chloride (98-107) mmol/L Carbon Dioxide (22-30) mmol/L Anion Gap (5-15) MEQ/L BUN (7-17) mg/dL Creatinine (0.52-1.04) mg/dL Estimated GFR ML/MIN Glucose (74-106) mg/dL POC Glucometer (74 to 106) mg/dL Lactic Acid 1.2 (0.4-2.0) Calcium (8.4-10.2) mg/dL Total Bilirubin (0.2-1.3) mg/dL AST (14-36) U/L ALT (0-35) U/L Alkaline Phosphatase (38-126) U/L Troponin I (0.000-0.033) ng/mL Serum Total Protein (6.3-8.2) g/dL Albumin (3.5-5.0) g/dL Lipase (23-300) U/L Urine Color Yellow (Yellow) Urine Appearance Clear (Clear) Urine pH 5.0 (4.6-8.0) Ur Specific [place] 1.025 (1.005-1.030) Urine Protein Negative (Negative) Urine Glucose (UA) >=1000 A (Negative) mg/dL Urine Ketones 80 A (Negative) Urine Blood Negative (Negative) Urine Nitrite Negative (Negative) Urine Bilirubin Negative (Negative) Urine Urobilinogen 0.2 (0.2) mg/dL Ur Leukocyte Esterase Negative (Negative) U Hyaline Cast (Auto) NONE SEEN (0-2) /LPF Urine Microscopic RBC 0-2 (0-5) /HPF Urine Microscopic WBC 0-2 (0-5) /HPF Ur Epithelial Cells None Seen (None Seen) /HPF Urine Bacteria None Seen (None Seen) /HPF Urine Culture Reflexed NO (NO) 01/17/25 01/17/25 01/17/25 Range/Units 20:30 21:17 23:08 WBC (3.98-10.04) x10^3/uL RBC (3.93-5.22) x10^6/uL Hgb (11.2-15.7) g/dL Hct (34.1-44.9) % MCV (79.4-94.8) fL MCH (25.6-32.2) pg MCHC (32.2-35.5) g/dL RDW (11.7-14.4) % Plt Count (182-369) x10^3/uL MPV (9.4-12.3) fL Gran % (34.0-71.1) % Immature Gran % (Auto) (0.001-0.429) % Nucleat RBC Rel Count (0.00-0.2) % Eos # (Auto) (0.04-0.36) x10^3/uL Immature Gran # (Auto) (0.001-0.031) x10^3u/L Absolute Lymphs (auto) (1.18-3.74) x10^3/uL Absolute Monos (auto) (0.24-0.86) x10^3/uL Absolute Nucleated RBC (0.00-0.012) x10^3u/L Lymphocytes % (19.3-51.7) % Monocytes % (4.7-12.5) % Eosinophils % (0.7-5.8) % Basophils % (0.1-1.2) % Absolute Granulocytes (1.56-6.13) x10^3/uL Basophils # (0.01-0.08) x10^3/uL pO2/FiO2 Ratio % VBG pH (7.32-7.42) VBG pCO2 at Pat Temp (42-55) mm/Hg VBG pO2 at Pat Temp (25-40) mm/Hg VBG HCO3 (22-28) meq/L VBG O2 Sat (Teresa) (95-100) VBG Base Excess (-2.0-2.0) VBG Hemoglobin VBG Carboxyhemoglobin (0.0-6.9) % T HGB POC Potassium (3.5-5.1) Sodium 141 (135-145) mmol/L Potassium 4.3 (3.5-5.1) mmol/L Chloride 111 H D (98-107) mmol/L Carbon Dioxide 10 L* (22-30) mmol/L Anion Gap 23.0 H (5-15) MEQ/L BUN 42 H (7-17) mg/dL Creatinine 0.97 (0.52-1.04) mg/dL Estimated GFR 66.5 ML/MIN Glucose 224 H (74-106) mg/dL POC Glucometer 198 H 181 H (74 to 106) mg/dL Lactic Acid (0.4-2.0) Calcium 8.6 D (8.4-10.2) mg/dL Total Bilirubin 0.70 (0.2-1.3) mg/dL AST 27 (14-36) U/L ALT 18 (0-35) U/L Alkaline Phosphatase 67 (38-126) U/L Troponin I < 0.012 (0.000-0.033) ng/mL Serum Total Protein 6.4 (6.3-8.2) g/dL Albumin 4.1 (3.5-5.0) g/dL Lipase (23-300) U/L Urine Color (Yellow) Urine Appearance (Clear) Urine pH (4.6-8.0) Ur Specific [place] (1.005-1.030) Urine Protein (Negative) Urine Glucose (UA) (Negative) mg/dL Urine Ketones (Negative) Urine Blood (Negative) Urine Nitrite (Negative) Urine Bilirubin (Negative) Urine Urobilinogen (0.2) mg/dL Ur Leukocyte Esterase (Negative) U Hyaline Cast (Auto) (0-2) /LPF Urine Microscopic RBC (0-5) /HPF Urine Microscopic WBC (0-5) /HPF Ur Epithelial Cells (None Seen) /HPF Urine Bacteria (None Seen) /HPF Urine Culture Reflexed (NO) 01/17/25 Range/Units 23:10 WBC (3.98-10.04) x10^3/uL RBC (3.93-5.22) x10^6/uL Hgb (11.2-15.7) g/dL Hct (34.1-44.9) % MCV (79.4-94.8) fL MCH (25.6-32.2) pg MCHC (32.2-35.5) g/dL RDW (11.7-14.4) % Plt Count (182-369) x10^3/uL MPV (9.4-12.3) fL Gran % (34.0-71.1) % Immature Gran % (Auto) (0.001-0.429) % Nucleat RBC Rel Count (0.00-0.2) % Eos # (Auto) (0.04-0.36) x10^3/uL Immature Gran # (Auto) (0.001-0.031) x10^3u/L Absolute Lymphs (auto) (1.18-3.74) x10^3/uL Absolute Monos (auto) (0.24-0.86) x10^3/uL Absolute Nucleated RBC (0.00-0.012) x10^3u/L Lymphocytes % (19.3-51.7) % Monocytes % (4.7-12.5) % Eosinophils % (0.7-5.8) % Basophils % (0.1-1.2) % Absolute Granulocytes (1.56-6.13) x10^3/uL Basophils # (0.01-0.08) x10^3/uL pO2/FiO2 Ratio % VBG pH (7.32-7.42) VBG pCO2 at Pat Temp (42-55) mm/Hg VBG pO2 at Pat Temp (25-40) mm/Hg VBG HCO3 (22-28) meq/L VBG O2 Sat (Teresa) (95-100) VBG Base Excess (-2.0-2.0) VBG Hemoglobin VBG Carboxyhemoglobin (0.0-6.9) % T HGB POC Potassium (3.5-5.1) Sodium 145 (135-145) mmol/L Potassium 4.0 (3.5-5.1) mmol/L Chloride 108 H (98-107) mmol/L Carbon Dioxide 17 L (22-30) mmol/L Anion Gap 23.5 H (5-15) MEQ/L BUN 43 H (7-17) mg/dL Creatinine 1.10 H (0.52-1.04) mg/dL Estimated GFR 57.2 ML/MIN Glucose 206 H (74-106) mg/dL POC Glucometer (74 to 106) mg/dL Lactic Acid (0.4-2.0) Calcium 9.2 (8.4-10.2) mg/dL Total Bilirubin (0.2-1.3) mg/dL AST (14-36) U/L ALT (0-35) U/L Alkaline Phosphatase (38-126) U/L Troponin I (0.000-0.033) ng/mL Serum Total Protein (6.3-8.2) g/dL Albumin (3.5-5.0) g/dL Lipase (23-300) U/L Urine Color (Yellow) Urine Appearance (Clear) Urine pH (4.6-8.0) Ur Specific [place] (1.005-1.030) Urine Protein (Negative) Urine Glucose (UA) (Negative) mg/dL Urine Ketones (Negative) Urine Blood (Negative) Urine Nitrite (Negative) Urine Bilirubin (Negative) Urine Urobilinogen (0.2) mg/dL Ur Leukocyte Esterase (Negative) U Hyaline Cast (Auto) (0-2) /LPF Urine Microscopic RBC (0-5) /HPF Urine Microscopic WBC (0-5) /HPF Ur Epithelial Cells (None Seen) /HPF Urine Bacteria (None Seen) /HPF Urine Culture Reflexed (NO) - Radiology Impressions Radiology Exams & Impressions: Radiology Procedures Category Date Time Status ABDOMEN AND PELVIS W/0 CONTRAS [CT] Stat Exams 01/17/25 16:[address] read not currently visible, but per ED report, patient has mild rectal impaction, with pattern perhaps consistent with ileus. Images reviewed, and no particular small bowel dilation was noted. Although stool present in the rectal vault. Assessment/Plan (1) DKA (diabetic ketoacidosis) Current Visit: Yes Status: Acute Assessment & Plan: 59-year-old woman with history of diabetes, hypertension, and hypothyroidism, here with nausea, vomiting, and abdominal pain that is currently resolving, but developing ketoacidosis. ## Diabetic ketoacidosis I suspect patient initially developed viral gastroenteritis with some abdominal pain, but this triggered a ketoacidosis. Perhaps partially mediated just from her diabetes, but might also have component of starvation ketosis that she could not manage, as her blood sugars were not that markedly elevated. However, she had an anion gap of 31 on arrival, with a fairly compensated pH on VBG but low pCO2. This indicates patient has a gap acidosis with respiratory compensation. Patient will be less able to close her gap by herself because of her relative insulin resistance. Placed on DKA protocol; already given 2 L bolus in the ED. Since glucose levels already low,. Started on D5 half-normal saline at 200 mL/h (increased from rate in the ED due to persistent dry mouth) as well as insulin drip. Follow q.4 hours BMP and urine to monitor for ketones (we are unable to measure serum ketones at [place]) Once patient has an appetite and anion gap is closed, can transition to subcutaneous insulin and allowed to have a diet PRN morphine and Zofran for symptom control in the meantime, although nausea appears to be almost fully resolved and pain is tapering off ## Acute kidney injury present on arrival, due to vomiting and poor p.o. intake with dehydration. Resolved now after initial fluids. Follow BMP ## Hypertension blood pressure overall controlled. Continue lisinopril 10 mg daily ## Hypothyroidism Continue levothyroxine 50 mcg daily CODE STATUS: Full code Diet: N.p.o. Prophylaxis: Lovenox 40 mg daily Dispo: Place in observation, expect discharge to home Entirety of encounter took place via live audio/video telemedicine device, with remote physician and patient in hospital, with the assistance of bedside nurse. Code(s): E11.10 - TYPE 2 DIABETES MELLITUS WITH KETOACIDOSIS WITHOUT COMA Telemedicine Encounter - Telemedicine Encounter Telemedicine Encounter: "The entirety of this encounter was performed via Telemedicine" This visit was performed using real-time audio and video connection between my location and thepatients locationwith the assistance of a surrogateat the patients location. Written or verbal consent was obtained from the patient/guardian to perform this visit [facility] technology. Any patient questions regarding the telemedicine interaction were answered.
[2025-01-18] MEDS: Senokot-S Tablet PO SCH (00:32)
[2025-01-18 02:54] LABS: Hematocrit 36.3 % (34.1-44.9); Hemoglobin 12.2 g/dL (11.2-15.7); Mean Cell Volume 86.8 fL (79.4-94.8); Mean Corpuscular Hemoglobin 29.2 pg (25.6-32.2); Mean Corpuscular Hgb Concent. 33.6 g/dL (32.2-35.5); Mean Platelet Volume 9.8 fL (9.4-12.3); Platelet Count 207 x10^3/uL (182-369); Red Blood Count 4.18 x10^6/uL (3.93-5.22); Red Cell Distribution Width 13.2 % (11.7-14.4); White Blood Count 3.8 x10^3/uL (3.98-10.04)
[2025-01-18 03:11] LABS: ANION GAP 15.5 MEQ/L (5-15); Calcium 8.8 mg/dL (8.4-10.2); Creatinine 1 1.04 mg/dL (0.52-1.04); EST GLOMERULAR FILTRATION RATE 61.2 ML/MIN; Potassium 4.1 mmol/L (3.5-5.1)
[2025-01-18 03:30] LABS: Appearance Clear (Clear); Bacteria None Seen /HPF (None Seen); Bilirubin Negative (Negative); Blood Negative (Negative); Epithelial Cells None Seen /HPF (None Seen); Glucose, Urine >=1000 mg/dL (Negative); Hyaline Casts NONE SEEN /LPF (0-2); Ketones 40 (Negative); Leukocyte Esterase Negative (Negative); Nitrite Negative (Negative); Ph 5.5 (4.6-8.0); Protein,Urine Dip Negative (Negative); RBC 0-2 /HPF (0-5); Specific Gravity >=1.030 (1.005-1.030); Urobilinogen 0.2 mg/dL (0.2); WBC 0-2 /HPF (0-5)
[2025-01-18] MEDS: D5W/0.45NS W/ 20mEq KCl 1000 ML 1,000 ML IV SCH (03:58)
[2025-01-18] MEDS: D50W 50 ml Abboject IV ONE (04:06)
[2025-01-18] MEDS: D50W 50 ml Abboject IV PRN (06:33)
[2025-01-18 07:05] LABS: ANION GAP 12.8 MEQ/L (5-15); Calcium 8.7 mg/dL (8.4-10.2); Creatinine 1 0.93 mg/dL (0.52-1.04); EST GLOMERULAR FILTRATION RATE 69.9 ML/MIN
--- NOTE | 2025-01-18 08:06 | XRAY ---
Indication: Left sided pain. Multiple contiguous axial images obtained through the abdomen and pelvis without contrast. Comparison: None Lung bases clear. Heart not enlarged. Small fluid-filled hiatal hernia favoring GERD. Incompletely visualized bilateral breast implants. Noncontrasted stomach and bowel loops appear nonobstructed. Several small bowel loops are fluid distended up to 3.5 cm with fluid leveling, ileus versus enteritis. Also mild diffuse scatter colonic fecal debris including rectum. A few subcentimeter uterine calcifications favoring calcified fibroid, largest 8mm. Incidental splenic calcified granulomas. No free fluid/air. Remaining liver, gallbladder, pancreas, spleen, adrenal glands, kidneys, ureters, bladder, and uterus are unremarkable for noncontrast exam. Minimal aortic calcification without AAA. Osseous structures intact with minimal/mild degenerative changes throughout spine. Impression: 1. Mild fluid distended small bowel loops with fluid leveling. Rule out ileus versus enteritis. 2. Mild diffuse colonic fecal stasis. 3. Small fluid-filled hiatal hernia favoring GERD. 4. Chronic findings including tiny calcified uterine fibroids, arteriosclerotic disease, and degenerative spondylosis.
[2025-01-18] MEDS: Lantus Insulin SQ SCH (08:35)
[2025-01-18] MEDS: Neutra-Phos Packet PO ONE (08:36)
[2025-01-18] MEDS: MYXREDLIN 100 UNIT/100 ML BAG 100 UNIT/100 ML PLAST..BAG IV PRN (09:04)
[2025-01-18] MEDS: Miralax Powder 17GM PACKET PO SCH (09:25)
[2025-01-18] MEDS: ECOTRIN 81 MG PO SCH (09:27)
[2025-01-18] MEDS: NEURONTIN PO SCH (09:27)
[2025-01-18] MEDS: ZOCOR 20MG PO SCH (09:27)
[2025-01-18] MEDS: ENOXAPARIN SODIUM SQ SCH (09:28)
[2025-01-18] MEDS: Zestril 10 MG PO SCH (09:31)
[2025-01-18 09:33] VITALS: TEMP 98
[2025-01-18] MEDS ORDERED: LIPITOR 40MG PO SCH (10:00)
[2025-01-18] MEDS: HUMALOG SQ PRN (10:47)
[2025-01-18 10:49] LABS: ANION GAP 15.8 MEQ/L (5-15); Calcium 8.3 mg/dL (8.4-10.2); Creatinine 1 0.87 mg/dL (0.52-1.04); EST GLOMERULAR FILTRATION RATE 75.8 ML/MIN; Potassium 4.1 mmol/L (3.5-5.1)
--- NOTE | 2025-01-18 12:31 | PCM.DS ---
Discharge Summary Date of Admission: 01/17/25 22:13 Date of Discharge: 01/18/25 Admitting Physician: MOR NICOLAS MD Primary Care Provider: KEZIA HICKMAN Allergies Allergies No Known Drug Allergies Allergy (Verified 01/17/25 16:29) Hospital Summary - Hospital Course Hospital Course: Mrs. Taylor is a 59-year-old woman with history of diabetes, hypertension, hypothyroidism, and remote history of breast cancer. She presented on 01/17/25 with 1 to 2 days of nausea, vomiting, and abdominal pain. Patient first noted cramping abdominal pains just underneath the left rib cage, leading to severe vomiting. Pain when she became more aching, associated with warmth over that site, and somewhat improved nausea. She has not noted any abdominal distention, and notes that she had a BM that morning. She has had poor appetite and no p.o. intake for the last 2 days except for ice chips, with some dry mouth but denies lightheadedness on standing. She has not been any of her medications except for her Victoza since Tuesday. Denies any fevers, chills, or sick contacts. However, she has noted some severe stress recently because her daughter has had recurrent Hodgkin lymphoma and is back on chemotherapy. She was admitted for DKA and this has resolved and gap closed. She was started on lantus and humalog s/s insulin. She has been able to advance her diet and tolerating well. CT showed constipation and miralax ordered. It also showed possible ileus vs. enteritis. She has not had any further N/V and tolerating oral intake well thus likely enteritis. If she is able to have a BM and glucose well controlled she can d/c home today. She deneis any further concerns at this time. - Vitals & Intake/Output Vital Signs: Vital Signs Temperature 98.0 F 01/18/25 09:25 Pulse Rate 78 01/18/25 11:49 Respiratory Rate 19 01/18/25 11:49 Blood Pressure 91/56 01/18/25 11:49 O2 Sat by Pulse Oximetry 100 01/18/25 11:49 Intake & Output: Intake & Output 01/16/25 01/17/25 01/18/25 01/19/25 11:59 11:59 11:59 11:59 Intake Total 2394 Output Total 1650 Balance 744 Weight 56 kg - Lab Result Diagrams: 01/18/25 02:53 01/18/25 10:32 Lab Results-Last 24 Hrs: Lab Results-Last 24 Hours 01/17/25 01/17/25 01/17/25 Range/Units 16:35 16:35 16:35 WBC 14.2 H (3.98-10.04) x10^3/uL RBC 5.05 (3.93-5.22) x10^6/uL Hgb 14.6 (11.2-15.7) g/dL Hct 43.9 (34.1-44.9) % MCV 86.9 (79.4-94.8) fL MCH 28.9 (25.6-32.2) pg MCHC 33.3 (32.2-35.5) g/dL RDW 13.3 (11.7-14.4) % Plt Count 336 (182-369) x10^3/uL MPV 10.3 (9.4-12.3) fL Gran % 80.6 H (34.0-71.1) % Immature Gran % (Auto) 0.2 (0.001-0.429) % Nucleat RBC Rel Count 0.0 (0.00-0.2) % Eos # (Auto) 0.01 L (0.04-0.36) x10^3/uL Immature Gran # (Auto) 0.03 (0.001-0.031) x10^3u/L Absolute Lymphs (auto) 1.25 (1.18-3.74) x10^3/uL Absolute Monos (auto) 1.41 H (0.24-0.86) x10^3/uL Absolute Nucleated RBC 0.00 (0.00-0.012) x10^3u/L Lymphocytes % 8.8 L (19.3-51.7) % Monocytes % 10.0 (4.7-12.5) % Eosinophils % 0.1 L (0.7-5.8) % Basophils % 0.3 (0.1-1.2) % Absolute Granulocytes 11.43 H (1.56-6.13) x10^3/uL Basophils # 0.04 (0.01-0.08) x10^3/uL pO2/FiO2 Ratio % VBG pH (7.32-7.42) VBG pCO2 at Pat Temp (42-55) mm/Hg VBG pO2 at Pat Temp (25-40) mm/Hg VBG HCO3 (22-28) meq/L VBG O2 Sat (Teresa) (95-100) VBG Base Excess (-2.0-2.0) VBG Hemoglobin VBG Carboxyhemoglobin (0.0-6.9) % T HGB POC Potassium (3.5-5.1) Sodium 143 (135-145) mmol/L Potassium 4.4 (3.5-5.1) mmol/L Chloride 99 (98-107) mmol/L Carbon Dioxide 15 L* (22-30) mmol/L Anion Gap 34.1 H (5-15) MEQ/L BUN 46 H (7-17) mg/dL Creatinine 1.37 H (0.52-1.04) mg/dL Estimated GFR 43.9 ML/MIN Glucose 324 H (74-106) mg/dL POC Glucometer (74 to 106) mg/dL Hemoglobin A1c (4.5-6.0) % Lactic Acid (0.4-2.0) Calcium 10.3 H (8.4-10.2) mg/dL Phosphorus (2.5-4.5) mg/dL Magnesium (1.6-2.3) mg/dL Total Bilirubin 1.00 (0.2-1.3) mg/dL AST 30 (14-36) U/L ALT 29 (0-35) U/L Alkaline Phosphatase 104 (38-126) U/L Troponin I < 0.012 (0.000-0.033) ng/mL Serum Total Protein 8.4 H (6.3-8.2) g/dL Albumin 5.4 H (3.5-5.0) g/dL Lipase 79 (23-300) U/L Urine Color (Yellow) Urine Appearance (Clear) Urine pH (4.6-8.0) Ur Specific Lester (1.005-1.030) Urine Protein (Negative) Urine Glucose (UA) (Negative) mg/dL Urine Ketones (Negative) Urine Blood (Negative) Urine Nitrite (Negative) Urine Bilirubin (Negative) Urine Urobilinogen (0.2) mg/dL Ur Leukocyte Esterase (Negative) U Hyaline Cast (Auto) (0-2) /LPF Urine Microscopic RBC (0-5) /HPF Urine Microscopic WBC (0-5) /HPF Ur Epithelial Cells (None Seen) /HPF Urine Bacteria (None Seen) /HPF Urine Culture Reflexed (NO) 01/17/25 01/17/25 01/17/25 Range/Units 17:11 19:24 19:40 WBC (3.98-10.04) x10^3/uL RBC (3.93-5.22) x10^6/uL Hgb (11.2-15.7) g/dL Hct (34.1-44.9) % MCV (79.4-94.8) fL MCH (25.6-32.2) pg MCHC (32.2-35.5) g/dL RDW (11.7-14.4) % Plt Count (182-369) x10^3/uL MPV (9.4-12.3) fL Gran % (34.0-71.1) % Immature Gran % (Auto) (0.001-0.429) % Nucleat RBC Rel Count (0.00-0.2) % Eos # (Auto) (0.04-0.36) x10^3/uL Immature Gran # (Auto) (0.001-0.031) x10^3u/L Absolute Lymphs (auto) (1.18-3.74) x10^3/uL Absolute Monos (auto) (0.24-0.86) x10^3/uL Absolute Nucleated RBC (0.00-0.012) x10^3u/L Lymphocytes % (19.3-51.7) % Monocytes % (4.7-12.5) % Eosinophils % (0.7-5.8) % Basophils % (0.1-1.2) % Absolute Granulocytes (1.56-6.13) x10^3/uL Basophils # (0.01-0.08) x10^3/uL pO2/FiO2 Ratio 21.0 % VBG pH 7.34 (7.32-7.42) VBG pCO2 at Pat Temp 32 L (42-55) mm/Hg VBG pO2 at Pat Temp 53 H (25-40) mm/Hg VBG HCO3 17.3 L (22-28) meq/L VBG O2 Sat (Teresa) 84.9 L (95-100) VBG Base Excess -7.3 L (-2.0-2.0) VBG Hemoglobin 15.4 VBG Carboxyhemoglobin 3.3 (0.0-6.9) % T HGB POC Potassium 4.6 (3.5-5.1) Sodium (135-145) mmol/L Potassium (3.5-5.1) mmol/L Chloride (98-107) mmol/L Carbon Dioxide (22-30) mmol/L Anion Gap (5-15) MEQ/L BUN (7-17) mg/dL Creatinine (0.52-1.04) mg/dL Estimated GFR ML/MIN Glucose (74-106) mg/dL POC Glucometer (74 to 106) mg/dL Hemoglobin A1c (4.5-6.0) % Lactic Acid 1.2 (0.4-2.0) Calcium (8.4-10.2) mg/dL Phosphorus (2.5-4.5) mg/dL Magnesium (1.6-2.3) mg/dL Total Bilirubin (0.2-1.3) mg/dL AST (14-36) U/L ALT (0-35) U/L Alkaline Phosphatase (38-126) U/L Troponin I (0.000-0.033) ng/mL Serum Total Protein (6.3-8.2) g/dL Albumin (3.5-5.0) g/dL Lipase (23-300) U/L Urine Color Yellow (Yellow) Urine Appearance Clear (Clear) Urine pH 5.0 (4.6-8.0) Ur Specific Lester 1.025 (1.005-1.030) Urine Protein Negative (Negative) Urine Glucose (UA) >=1000 A (Negative) mg/dL Urine Ketones 80 A (Negative) Urine Blood Negative (Negative) Urine Nitrite Negative (Negative) Urine Bilirubin Negative (Negative) Urine Urobilinogen 0.2 (0.2) mg/dL Ur Leukocyte Esterase Negative (Negative) U Hyaline Cast (Auto) NONE SEEN (0-2) /LPF Urine Microscopic RBC 0-2 (0-5) /HPF Urine Microscopic WBC 0-2 (0-5) /HPF Ur Epithelial Cells None Seen (None Seen) /HPF Urine Bacteria None Seen (None Seen) /HPF Urine Culture Reflexed NO (NO) 01/17/25 01/17/25 01/17/25 Range/Units 20:30 21:17 23:08 WBC (3.98-10.04) x10^3/uL RBC (3.93-5.22) x10^6/uL Hgb (11.2-15.7) g/dL Hct (34.1-44.9) % MCV (79.4-94.8) fL MCH (25.6-32.2) pg MCHC (32.2-35.5) g/dL RDW (11.7-14.4) % Plt Count (182-369) x10^3/uL MPV (9.4-12.3) fL Gran % (34.0-71.1) % Immature Gran % (Auto) (0.001-0.429) % Nucleat RBC Rel Count (0.00-0.2) % Eos # (Auto) (0.04-0.36) x10^3/uL Immature Gran # (Auto) (0.001-0.031) x10^3u/L Absolute Lymphs (auto) (1.18-3.74) x10^3/uL Absolute Monos (auto) (0.24-0.86) x10^3/uL Absolute Nucleated RBC (0.00-0.012) x10^3u/L Lymphocytes % (19.3-51.7) % Monocytes % (4.7-12.5) % Eosinophils % (0.7-5.8) % Basophils % (0.1-1.2) % Absolute Granulocytes (1.56-6.13) x10^3/uL Basophils # (0.01-0.08) x10^3/uL pO2/FiO2 Ratio % VBG pH (7.32-7.42) VBG pCO2 at Pat Temp (42-55) mm/Hg VBG pO2 at Pat Temp (25-40) mm/Hg VBG HCO3 (22-28) meq/L VBG O2 Sat (Teresa) (95-100) VBG Base Excess (-2.0-2.0) VBG Hemoglobin VBG Carboxyhemoglobin (0.0-6.9) % T HGB POC Potassium (3.5-5.1) Sodium 141 (135-145) mmol/L Potassium 4.3 (3.5-5.1) mmol/L Chloride 111 H D (98-107) mmol/L Carbon Dioxide 10 L* (22-30) mmol/L Anion Gap 23.0 H (5-15) MEQ/L BUN 42 H (7-17) mg/dL Creatinine 0.97 (0.52-1.04) mg/dL Estimated GFR 66.5 ML/MIN Glucose 224 H (74-106) mg/dL POC Glucometer 198 H 181 H (74 to 106) mg/dL Hemoglobin A1c (4.5-6.0) % Lactic Acid (0.4-2.0) Calcium 8.6 D (8.4-10.2) mg/dL Phosphorus (2.5-4.5) mg/dL Magnesium (1.6-2.3) mg/dL Total Bilirubin 0.70 (0.2-1.3) mg/dL AST 27 (14-36) U/L ALT 18 (0-35) U/L Alkaline Phosphatase 67 (38-126) U/L Troponin I < 0.012 (0.000-0.033) ng/mL Serum Total Protein 6.4 (6.3-8.2) g/dL Albumin 4.1 (3.5-5.0) g/dL Lipase (23-300) U/L Urine Color (Yellow) Urine Appearance (Clear) Urine pH (4.6-8.0) Ur Specific Lester (1.005-1.030) Urine Protein (Negative) Urine Glucose (UA) (Negative) mg/dL Urine Ketones (Negative) Urine Blood (Negative) Urine Nitrite (Negative) Urine Bilirubin (Negative) Urine Urobilinogen (0.2) mg/dL Ur Leukocyte Esterase (Negative) U Hyaline Cast (Auto) (0-2) /LPF Urine Microscopic RBC (0-5) /HPF Urine Microscopic WBC (0-5) /HPF Ur Epithelial Cells (None Seen) /HPF Urine Bacteria (None Seen) /HPF Urine Culture Reflexed (NO) 03/27/25 03/28/25 03/28/25 Range/Units 23:10 00:08 01:08 WBC (3.98-10.04) x10^3/uL RBC (3.93-5.22) x10^6/uL Hgb (11.2-15.7) g/dL Hct (34.1-44.9) % MCV (79.4-94.8) fL MCH (25.6-32.2) pg MCHC (32.2-35.5) g/dL RDW (11.7-14.4) % Plt Count (182-369) x10^3/uL MPV (9.4-12.3) fL Gran % (34.0-71.1) % Immature Gran % (Auto) (0.001-0.429) % Nucleat RBC Rel Count (0.00-0.2) % Eos # (Auto) (0.04-0.36) x10^3/uL Immature Gran # (Auto) (0.001-0.031) x10^3u/L Absolute Lymphs (auto) (1.18-3.74) x10^3/uL Absolute Monos (auto) (0.24-0.86) x10^3/uL Absolute Nucleated RBC (0.00-0.012) x10^3u/L Lymphocytes % (19.3-51.7) % Monocytes % (4.7-12.5) % Eosinophils % (0.7-5.8) % Basophils % (0.1-1.2) % Absolute Granulocytes (1.56-6.13) x10^3/uL Basophils # (0.01-0.08) x10^3/uL pO2/FiO2 Ratio % VBG pH (7.32-7.42) VBG pCO2 at Pat Temp (42-55) mm/Hg VBG pO2 at Pat Temp (25-40) mm/Hg VBG HCO3 (22-28) meq/L VBG O2 Sat (Teresa) (95-100) VBG Base Excess (-2.0-2.0) VBG Hemoglobin VBG Carboxyhemoglobin (0.0-6.9) % T HGB POC Potassium (3.5-5.1) Sodium 145 (135-145) mmol/L Potassium 4.0 (3.5-5.1) mmol/L Chloride 108 H (98-107) mmol/L Carbon Dioxide 17 L (22-30) mmol/L Anion Gap 23.5 H (5-15) MEQ/L BUN 43 H (7-17) mg/dL Creatinine 1.10 H (0.52-1.04) mg/dL Estimated GFR 57.2 ML/MIN Glucose 206 H (74-106) mg/dL POC Glucometer 167 H 141 H (74 to 106) mg/dL Hemoglobin A1c (4.5-6.0) % Lactic Acid (0.4-2.0) Calcium 9.2 (8.4-10.2) mg/dL Phosphorus (2.5-4.5) mg/dL Magnesium (1.6-2.3) mg/dL Total Bilirubin (0.2-1.3) mg/dL AST (14-36) U/L ALT (0-35) U/L Alkaline Phosphatase (38-126) U/L Troponin I (0.000-0.033) ng/mL Serum Total Protein (6.3-8.2) g/dL Albumin (3.5-5.0) g/dL Lipase (23-300) U/L Urine Color (Yellow) Urine Appearance (Clear) Urine pH (4.6-8.0) Ur Specific Lester (1.005-1.030) Urine Protein (Negative) Urine Glucose (UA) (Negative) mg/dL Urine Ketones (Negative) Urine Blood (Negative) Urine Nitrite (Negative) Urine Bilirubin (Negative) Urine Urobilinogen (0.2) mg/dL Ur Leukocyte Esterase (Negative) U Hyaline Cast (Auto) (0-2) /LPF Urine Microscopic RBC (0-5) /HPF Urine Microscopic WBC (0-5) /HPF Ur Epithelial Cells (None Seen) /HPF Urine Bacteria (None Seen) /HPF Urine Culture Reflexed (NO) 01/18/25 01/18/25 01/18/25 Range/Units 02:04 02:50 02:53 WBC (3.98-10.04) x10^3/uL RBC (3.93-5.22) x10^6/uL Hgb (11.2-15.7) g/dL Hct (34.1-44.9) % MCV (79.4-94.8) fL MCH (25.6-32.2) pg MCHC (32.2-35.5) g/dL RDW (11.7-14.4) % Plt Count (182-369) x10^3/uL MPV (9.4-12.3) fL Gran % (34.0-71.1) % Immature Gran % (Auto) (0.001-0.429) % Nucleat RBC Rel Count (0.00-0.2) % Eos # (Auto) (0.04-0.36) x10^3/uL Immature Gran # (Auto) (0.001-0.031) x10^3u/L Absolute Lymphs (auto) (1.18-3.74) x10^3/uL Absolute Monos (auto) (0.24-0.86) x10^3/uL Absolute Nucleated RBC (0.00-0.012) x10^3u/L Lymphocytes % (19.3-51.7) % Monocytes % (4.7-12.5) % Eosinophils % (0.7-5.8) % Basophils % (0.1-1.2) % Absolute Granulocytes (1.56-6.13) x10^3/uL Basophils # (0.01-0.08) x10^3/uL pO2/FiO2 Ratio % VBG pH (7.32-7.42) VBG pCO2 at Pat Temp (42-55) mm/Hg VBG pO2 at Pat Temp (25-40) mm/Hg VBG HCO3 (22-28) meq/L VBG O2 Sat (Teresa) (95-100) VBG Base Excess (-2.0-2.0) VBG Hemoglobin VBG Carboxyhemoglobin (0.0-6.9) % T HGB POC Potassium (3.5-5.1) Sodium 142 (135-145) mmol/L Potassium 4.1 (3.5-5.1) mmol/L Chloride 108 H (98-107) mmol/L Carbon Dioxide 23 (22-30) mmol/L Anion Gap 15.5 H (5-15) MEQ/L BUN 40 H (7-17) mg/dL Creatinine 1.04 (0.52-1.04) mg/dL Estimated GFR 61.2 ML/MIN Glucose 130 H (74-106) mg/dL POC Glucometer 136 H 129 H (74 to 106) mg/dL Hemoglobin A1c (4.5-6.0) % Lactic Acid (0.4-2.0) Calcium 8.8 (8.4-10.2) mg/dL Phosphorus (2.5-4.5) mg/dL Magnesium (1.6-2.3) mg/dL Total Bilirubin (0.2-1.3) mg/dL AST (14-36) U/L ALT (0-35) U/L Alkaline Phosphatase (38-126) U/L Troponin I (0.000-0.033) ng/mL Serum Total Protein (6.3-8.2) g/dL Albumin (3.5-5.0) g/dL Lipase (23-300) U/L Urine Color (Yellow) Urine Appearance (Clear) Urine pH (4.6-8.0) Ur Specific Lester (1.005-1.030) Urine Protein (Negative) Urine Glucose (UA) (Negative) mg/dL Urine Ketones (Negative) Urine Blood (Negative) Urine Nitrite (Negative) Urine Bilirubin (Negative) Urine Urobilinogen (0.2) mg/dL Ur Leukocyte Esterase (Negative) U Hyaline Cast (Auto) (0-2) /LPF Urine Microscopic RBC (0-5) /HPF Urine Microscopic WBC (0-5) /HPF Ur Epithelial Cells (None Seen) /HPF Urine Bacteria (None Seen) /HPF Urine Culture Reflexed (NO) 01/18/25 01/18/25 01/18/25 Range/Units 02:53 02:53 03:22 WBC 3.8 L (3.98-10.04) x10^3/uL RBC 4.18 (3.93-5.22) x10^6/uL Hgb 12.2 (11.2-15.7) g/dL Hct 36.3 (34.1-44.9) % MCV 86.8 (79.4-94.8) fL MCH 29.2 (25.6-32.2) pg MCHC 33.6 (32.2-35.5) g/dL RDW 13.2 (11.7-14.4) % Plt Count 207 D (182-369) x10^3/uL MPV 9.8 (9.4-12.3) fL Gran % (34.0-71.1) % Immature Gran % (Auto) (0.001-0.429) % Nucleat RBC Rel Count (0.00-0.2) % Eos # (Auto) (0.04-0.36) x10^3/uL Immature Gran # (Auto) (0.001-0.031) x10^3u/L Absolute Lymphs (auto) (1.18-3.74) x10^3/uL Absolute Monos (auto) (0.24-0.86) x10^3/uL Absolute Nucleated RBC (0.00-0.012) x10^3u/L Lymphocytes % (19.3-51.7) % Monocytes % (4.7-12.5) % Eosinophils % (0.7-5.8) % Basophils % (0.1-1.2) % Absolute Granulocytes (1.56-6.13) x10^3/uL Basophils # (0.01-0.08) x10^3/uL pO2/FiO2 Ratio % VBG pH (7.32-7.42) VBG pCO2 at Pat Temp (42-55) mm/Hg VBG pO2 at Pat Temp (25-40) mm/Hg VBG HCO3 (22-28) meq/L VBG O2 Sat (Teresa) (95-100) VBG Base Excess (-2.0-2.0) VBG Hemoglobin VBG Carboxyhemoglobin (0.0-6.9) % T HGB POC Potassium (3.5-5.1) Sodium (135-145) mmol/L Potassium (3.5-5.1) mmol/L Chloride (98-107) mmol/L Carbon Dioxide (22-30) mmol/L Anion Gap (5-15) MEQ/L BUN (7-17) mg/dL Creatinine (0.52-1.04) mg/dL Estimated GFR ML/MIN Glucose (74-106) mg/dL POC Glucometer (74 to 106) mg/dL Hemoglobin A1c 6.53 H (4.5-6.0) % Lactic Acid (0.4-2.0) Calcium (8.4-10.2) mg/dL Phosphorus (2.5-4.5) mg/dL Magnesium (1.6-2.3) mg/dL Total Bilirubin (0.2-1.3) mg/dL AST (14-36) U/L ALT (0-35) U/L Alkaline Phosphatase (38-126) U/L Troponin I (0.000-0.033) ng/mL Serum Total Protein (6.3-8.2) g/dL Albumin (3.5-5.0) g/dL Lipase (23-300) U/L Urine Color Yellow (Yellow) Urine Appearance Clear (Clear) Urine pH 5.5 (4.6-8.0) Ur Specific Lester >=1.030 A (1.005-1.030) Urine Protein Negative (Negative) Urine Glucose (UA) >=1000 A (Negative) mg/dL Urine Ketones 40 A (Negative) Urine Blood Negative (Negative) Urine Nitrite Negative (Negative) Urine Bilirubin Negative (Negative) Urine Urobilinogen 0.2 (0.2) mg/dL Ur Leukocyte Esterase Negative (Negative) U Hyaline Cast (Auto) NONE SEEN (0-2) /LPF Urine Microscopic RBC 0-2 (0-5) /HPF Urine Microscopic WBC 0-2 (0-5) /HPF Ur Epithelial Cells None Seen (None Seen) /HPF Urine Bacteria None Seen (None Seen) /HPF Urine Culture Reflexed NO (NO) 01/18/25 01/18/25 01/18/25 Range/Units 04:00 04:37 05:09 WBC (3.98-10.04) x10^3/uL RBC (3.93-5.22) x10^6/uL Hgb (11.2-15.7) g/dL Hct (34.1-44.9) % MCV (79.4-94.8) fL MCH (25.6-32.2) pg MCHC (32.2-35.5) g/dL RDW (11.7-14.4) % Plt Count (182-369) x10^3/uL MPV (9.4-12.3) fL Gran % (34.0-71.1) % Immature Gran % (Auto) (0.001-0.429) % Nucleat RBC Rel Count (0.00-0.2) % Eos # (Auto) (0.04-0.36) x10^3/uL Immature Gran # (Auto) (0.001-0.031) x10^3u/L Absolute Lymphs (auto) (1.18-3.74) x10^3/uL Absolute Monos (auto) (0.24-0.86) x10^3/uL Absolute Nucleated RBC (0.00-0.012) x10^3u/L Lymphocytes % (19.3-51.7) % Monocytes % (4.7-12.5) % Eosinophils % (0.7-5.8) % Basophils % (0.1-1.2) % Absolute Granulocytes (1.56-6.13) x10^3/uL Basophils # (0.01-0.08) x10^3/uL pO2/FiO2 Ratio % VBG pH (7.32-7.42) VBG pCO2 at Pat Temp (42-55) mm/Hg VBG pO2 at Pat Temp (25-40) mm/Hg VBG HCO3 (22-28) meq/L VBG O2 Sat (Teresa) (95-100) VBG Base Excess (-2.0-2.0) VBG Hemoglobin VBG Carboxyhemoglobin (0.0-6.9) % T HGB POC Potassium (3.5-5.1) Sodium (135-145) mmol/L Potassium (3.5-5.1) mmol/L Chloride (98-107) mmol/L Carbon Dioxide (22-30) mmol/L Anion Gap (5-15) MEQ/L BUN (7-17) mg/dL Creatinine (0.52-1.04) mg/dL Estimated GFR ML/MIN Glucose (74-106) mg/dL POC Glucometer 71 L 163 H 118 H (74 to 106) mg/dL Hemoglobin A1c (4.5-6.0) % Lactic Acid (0.4-2.0) Calcium (8.4-10.2) mg/dL Phosphorus (2.5-4.5) mg/dL Magnesium (1.6-2.3) mg/dL Total Bilirubin (0.2-1.3) mg/dL AST (14-36) U/L ALT (0-35) U/L Alkaline Phosphatase (38-126) U/L Troponin I (0.000-0.033) ng/mL Serum Total Protein (6.3-8.2) g/dL Albumin (3.5-5.0) g/dL Lipase (23-300) U/L Urine Color (Yellow) Urine Appearance (Clear) Urine pH (4.6-8.0) Ur Specific Lester (1.005-1.030) Urine Protein (Negative) Urine Glucose (UA) (Negative) mg/dL Urine Ketones (Negative) Urine Blood (Negative) Urine Nitrite (Negative) Urine Bilirubin (Negative) Urine Urobilinogen (0.2) mg/dL Ur Leukocyte Esterase (Negative) U Hyaline Cast (Auto) (0-2) /LPF Urine Microscopic RBC (0-5) /HPF Urine Microscopic WBC (0-5) /HPF Ur Epithelial Cells (None Seen) /HPF Urine Bacteria (None Seen) /HPF Urine Culture Reflexed (NO) 01/18/25 01/18/25 01/18/25 Range/Units 06:07 06:54 06:54 WBC (3.98-10.04) x10^3/uL RBC (3.93-5.22) x10^6/uL Hgb (11.2-15.7) g/dL Hct (34.1-44.9) % MCV (79.4-94.8) fL MCH (25.6-32.2) pg MCHC (32.2-35.5) g/dL RDW (11.7-14.4) % Plt Count (182-369) x10^3/uL MPV (9.4-12.3) fL Gran % (34.0-71.1) % Immature Gran % (Auto) (0.001-0.429) % Nucleat RBC Rel Count (0.00-0.2) % Eos # (Auto) (0.04-0.36) x10^3/uL Immature Gran # (Auto) (0.001-0.031) x10^3u/L Absolute Lymphs (auto) (1.18-3.74) x10^3/uL Absolute Monos (auto) (0.24-0.86) x10^3/uL Absolute Nucleated RBC (0.00-0.012) x10^3u/L Lymphocytes % (19.3-51.7) % Monocytes % (4.7-12.5) % Eosinophils % (0.7-5.8) % Basophils % (0.1-1.2) % Absolute Granulocytes (1.56-6.13) x10^3/uL Basophils # (0.01-0.08) x10^3/uL pO2/FiO2 Ratio % VBG pH (7.32-7.42) VBG pCO2 at Pat Temp (42-55) mm/Hg VBG pO2 at Pat Temp (25-40) mm/Hg VBG HCO3 (22-28) meq/L VBG O2 Sat (Teresa) (95-100) VBG Base Excess (-2.0-2.0) VBG Hemoglobin VBG Carboxyhemoglobin (0.0-6.9) % T HGB POC Potassium (3.5-5.1) Sodium 139 (135-145) mmol/L Potassium 4.0 (3.5-5.1) mmol/L Chloride 106 (98-107) mmol/L Carbon Dioxide 24 (22-30) mmol/L Anion Gap 12.8 (5-15) MEQ/L BUN 36 H (7-17) mg/dL Creatinine 0.93 (0.52-1.04) mg/dL Estimated GFR 69.9 ML/MIN Glucose 143 H (74-106) mg/dL POC Glucometer 91 (74 to 106) mg/dL Hemoglobin A1c (4.5-6.0) % Lactic Acid (0.4-2.0) Calcium 8.7 (8.4-10.2) mg/dL Phosphorus 2.0 L (2.5-4.5) mg/dL Magnesium 2.0 (1.6-2.3) mg/dL Total Bilirubin (0.2-1.3) mg/dL AST (14-36) U/L ALT (0-35) U/L Alkaline Phosphatase (38-126) U/L Troponin I (0.000-0.033) ng/mL Serum Total Protein (6.3-8.2) g/dL Albumin (3.5-5.0) g/dL Lipase (23-300) U/L Urine Color (Yellow) Urine Appearance (Clear) Urine pH (4.6-8.0) Ur Specific Lester (1.005-1.030) Urine Protein (Negative) Urine Glucose (UA) (Negative) mg/dL Urine Ketones (Negative) Urine Blood (Negative) Urine Nitrite (Negative) Urine Bilirubin (Negative) Urine Urobilinogen (0.2) mg/dL Ur Leukocyte Esterase (Negative) U Hyaline Cast (Auto) (0-2) /LPF Urine Microscopic RBC (0-5) /HPF Urine Microscopic WBC (0-5) /HPF Ur Epithelial Cells (None Seen) /HPF Urine Bacteria (None Seen) /HPF Urine Culture Reflexed (NO) 01/18/25 01/18/25 01/18/25 Range/Units 07:09 08:02 08:56 WBC (3.98-10.04) x10^3/uL RBC (3.93-5.22) x10^6/uL Hgb (11.2-15.7) g/dL Hct (34.1-44.9) % MCV (79.4-94.8) fL MCH (25.6-32.2) pg MCHC (32.2-35.5) g/dL RDW (11.7-14.4) % Plt Count (182-369) x10^3/uL MPV (9.4-12.3) fL Gran % (34.0-71.1) % Immature Gran % (Auto) (0.001-0.429) % Nucleat RBC Rel Count (0.00-0.2) % Eos # (Auto) (0.04-0.36) x10^3/uL Immature Gran # (Auto) (0.001-0.031) x10^3u/L Absolute Lymphs (auto) (1.18-3.74) x10^3/uL Absolute Monos (auto) (0.24-0.86) x10^3/uL Absolute Nucleated RBC (0.00-0.012) x10^3u/L Lymphocytes % (19.3-51.7) % Monocytes % (4.7-12.5) % Eosinophils % (0.7-5.8) % Basophils % (0.1-1.2) % Absolute Granulocytes (1.56-6.13) x10^3/uL Basophils # (0.01-0.08) x10^3/uL pO2/FiO2 Ratio % VBG pH (7.32-7.42) VBG pCO2 at Pat Temp (42-55) mm/Hg VBG pO2 at Pat Temp (25-40) mm/Hg VBG HCO3 (22-28) meq/L VBG O2 Sat (Teresa) (95-100) VBG Base Excess (-2.0-2.0) VBG Hemoglobin VBG Carboxyhemoglobin (0.0-6.9) % T HGB POC Potassium (3.5-5.1) Sodium (135-145) mmol/L Potassium (3.5-5.1) mmol/L Chloride (98-107) mmol/L Carbon Dioxide (22-30) mmol/L Anion Gap (5-15) MEQ/L BUN (7-17) mg/dL Creatinine (0.52-1.04) mg/dL Estimated GFR ML/MIN Glucose (74-106) mg/dL POC Glucometer 106 106 189 H (74 to 106) mg/dL Hemoglobin A1c (4.5-6.0) % Lactic Acid (0.4-2.0) Calcium (8.4-10.2) mg/dL Phosphorus (2.5-4.5) mg/dL Magnesium (1.6-2.3) mg/dL Total Bilirubin (0.2-1.3) mg/dL AST (14-36) U/L ALT (0-35) U/L Alkaline Phosphatase (38-126) U/L Troponin I (0.000-0.033) ng/mL Serum Total Protein (6.3-8.2) g/dL Albumin (3.5-5.0) g/dL Lipase (23-300) U/L Urine Color (Yellow) Urine Appearance (Clear) Urine pH (4.6-8.0) Ur Specific Lester (1.005-1.030) Urine Protein (Negative) Urine Glucose (UA) (Negative) mg/dL Urine Ketones (Negative) Urine Blood (Negative) Urine Nitrite (Negative) Urine Bilirubin (Negative) Urine Urobilinogen (0.2) mg/dL Ur Leukocyte Esterase (Negative) U Hyaline Cast (Auto) (0-2) /LPF Urine Microscopic RBC (0-5) /HPF Urine Microscopic WBC (0-5) /HPF Ur Epithelial Cells (None Seen) /HPF Urine Bacteria (None Seen) /HPF Urine Culture Reflexed (NO) 01/18/25 01/18/25 01/18/25 Range/Units 09:59 10:32 10:41 WBC (3.98-10.04) x10^3/uL RBC (3.93-5.22) x10^6/uL Hgb (11.2-15.7) g/dL Hct (34.1-44.9) % MCV (79.4-94.8) fL MCH (25.6-32.2) pg MCHC (32.2-35.5) g/dL RDW (11.7-14.4) % Plt Count (182-369) x10^3/uL MPV (9.4-12.3) fL Gran % (34.0-71.1) % Immature Gran % (Auto) (0.001-0.429) % Nucleat RBC Rel Count (0.00-0.2) % Eos # (Auto) (0.04-0.36) x10^3/uL Immature Gran # (Auto) (0.001-0.031) x10^3u/L Absolute Lymphs (auto) (1.18-3.74) x10^3/uL Absolute Monos (auto) (0.24-0.86) x10^3/uL Absolute Nucleated RBC (0.00-0.012) x10^3u/L Lymphocytes % (19.3-51.7) % Monocytes % (4.7-12.5) % Eosinophils % (0.7-5.8) % Basophils % (0.1-1.2) % Absolute Granulocytes (1.56-6.13) x10^3/uL Basophils # (0.01-0.08) x10^3/uL pO2/FiO2 Ratio % VBG pH (7.32-7.42) VBG pCO2 at Pat Temp (42-55) mm/Hg VBG pO2 at Pat Temp (25-40) mm/Hg VBG HCO3 (22-28) meq/L VBG O2 Sat (Teresa) (95-100) VBG Base Excess (-2.0-2.0) VBG Hemoglobin VBG Carboxyhemoglobin (0.0-6.9) % T HGB POC Potassium (3.5-5.1) Sodium 137 (135-145) mmol/L Potassium 4.1 (3.5-5.1) mmol/L Chloride 104 (98-107) mmol/L Carbon Dioxide 21 L (22-30) mmol/L Anion Gap 15.8 H (5-15) MEQ/L BUN 32 H (7-17) mg/dL Creatinine 0.87 (0.52-1.04) mg/dL Estimated GFR 75.8 ML/MIN Glucose 240 H (74-106) mg/dL POC Glucometer 224 H 232 H (74 to 106) mg/dL Hemoglobin A1c (4.5-6.0) % Lactic Acid (0.4-2.0) Calcium 8.3 L (8.4-10.2) mg/dL Phosphorus (2.5-4.5) mg/dL Magnesium (1.6-2.3) mg/dL Total Bilirubin (0.2-1.3) mg/dL AST (14-36) U/L ALT (0-35) U/L Alkaline Phosphatase (38-126) U/L Troponin I (0.000-0.033) ng/mL Serum Total Protein (6.3-8.2) g/dL Albumin (3.5-5.0) g/dL Lipase (23-300) U/L Urine Color (Yellow) Urine Appearance (Clear) Urine pH (4.6-8.0) Ur Specific Lester (1.005-1.030) Urine Protein (Negative) Urine Glucose (UA) (Negative) mg/dL Urine Ketones (Negative) Urine Blood (Negative) Urine Nitrite (Negative) Urine Bilirubin (Negative) Urine Urobilinogen (0.2) mg/dL Ur Leukocyte Esterase (Negative) U Hyaline Cast (Auto) (0-2) /LPF Urine Microscopic RBC (0-5) /HPF Urine Microscopic WBC (0-5) /HPF Ur Epithelial Cells (None Seen) /HPF Urine Bacteria (None Seen) /HPF Urine Culture Reflexed (NO) 01/18/25 Range/Units 11:47 WBC (3.98-10.04) x10^3/uL RBC (3.93-5.22) x10^6/uL Hgb (11.2-15.7) g/dL Hct (34.1-44.9) % MCV (79.4-94.8) fL MCH (25.6-32.2) pg MCHC (32.2-35.5) g/dL RDW (11.7-14.4) % Plt Count (182-369) x10^3/uL MPV (9.4-12.3) fL Gran % (34.0-71.1) % Immature Gran % (Auto) (0.001-0.429) % Nucleat RBC Rel Count (0.00-0.2) % Eos # (Auto) (0.04-0.36) x10^3/uL Immature Gran # (Auto) (0.001-0.031) x10^3u/L Absolute Lymphs (auto) (1.18-3.74) x10^3/uL Absolute Monos (auto) (0.24-0.86) x10^3/uL Absolute Nucleated RBC (0.00-0.012) x10^3u/L Lymphocytes % (19.3-51.7) % Monocytes % (4.7-12.5) % Eosinophils % (0.7-5.8) % Basophils % (0.1-1.2) % Absolute Granulocytes (1.56-6.13) x10^3/uL Basophils # (0.01-0.08) x10^3/uL pO2/FiO2 Ratio % VBG pH (7.32-7.42) VBG pCO2 at Pat Temp (42-55) mm/Hg VBG pO2 at Pat Temp (25-40) mm/Hg VBG HCO3 (22-28) meq/L VBG O2 Sat (Teresa) (95-100) VBG Base Excess (-2.0-2.0) VBG Hemoglobin VBG Carboxyhemoglobin (0.0-6.9) % T HGB POC Potassium (3.5-5.1) Sodium (135-145) mmol/L Potassium (3.5-5.1) mmol/L Chloride (98-107) mmol/L Carbon Dioxide (22-30) mmol/L Anion Gap (5-15) MEQ/L BUN (7-17) mg/dL Creatinine (0.52-1.04) mg/dL Estimated GFR ML/MIN Glucose (74-106) mg/dL POC Glucometer 142 H (74 to 106) mg/dL Hemoglobin A1c (4.5-6.0) % Lactic Acid (0.4-2.0) Calcium (8.4-10.2) mg/dL Phosphorus (2.5-4.5) mg/dL Magnesium (1.6-2.3) mg/dL Total Bilirubin (0.2-1.3) mg/dL AST (14-36) U/L ALT (0-35) U/L Alkaline Phosphatase (38-126) U/L Troponin I (0.000-0.033) ng/mL Serum Total Protein (6.3-8.2) g/dL Albumin (3.5-5.0) g/dL Lipase (23-300) U/L Urine Color (Yellow) Urine Appearance (Clear) Urine pH (4.6-8.0) Ur Specific Lester (1.005-1.030) Urine Protein (Negative) Urine Glucose (UA) (Negative) mg/dL Urine Ketones (Negative) Urine Blood (Negative) Urine Nitrite (Negative) Urine Bilirubin (Negative) Urine Urobilinogen (0.2) mg/dL Ur Leukocyte Esterase (Negative) U Hyaline Cast (Auto) (0-2) /LPF Urine Microscopic RBC (0-5) /HPF Urine Microscopic WBC (0-5) /HPF Ur Epithelial Cells (None Seen) /HPF Urine Bacteria (None Seen) /HPF Urine Culture Reflexed (NO) Micro Results-Entire Visit: Accuchecks Date 01/18/25 Date 01/18/25 Date 01/18/25 Date 01/18/25 Date 01/18/25 Date 01/18/25 Date 01/18/25 Date 01/18/25 Date 01/18/25 Date 01/18/25 Date 01/18/25 Date 01/18/25 Date 01/18/25 Date 01/17/25 Time 11:50 Time 10:00 Time 09:00 Time 08:02 Time 07:09 Time 06:07 Time 05:09 Time 04:00 Time 02:50 Time 02:04 Time 01:08 Time 00:08 Time 23:08 - Radiology Exams Ordered Rad Exams-Entire Visit: Radiology Procedures Category Date Time Status ABDOMEN AND PELVIS W/0 CONTRAS [CT] Stat Exams 01/17/25 16:31 Completed Discharge Exam General Appearance: no apparent distress, alert Neurologic Exam: alert, oriented x 3, cooperative, normal mood/affect, nml cerebellar function, sensation nml, No motor deficits Eye Exam: PERRL, EOMI, eyes nml inspection Ears, Nose, Throat Exam: normal ENT inspection, pharynx normal, moist mucous membranes Neck Exam: normal inspection, non-tender, supple, full range of motion Respiratory Exam: normal breath sounds, lungs clear, No respiratory distress Cardiovascular Exam: regular rate/rhythm, normal heart sounds Gastrointestinal/Abdomen Exam: soft, tenderness (LUQ), No mass Pelvic Exam: deferred Rectal Exam: deferred Back Exam: normal inspection, normal range of motion, No CVA tenderness, No vertebral tenderness Extremity Exam: normal inspection, normal range of motion Skin Exam: normal color, warm, dry Final Diagnosis/Problem List - Final Discharge Diagnosis/Problem (1) DKA (diabetic ketoacidosis) Current Visit: Yes Status: Resolved Assessment & Plan: - ICU - TELE - Resolved - Gap closed - Advance diet as tolerated - Humalog s/s and lantus BID - Accuchecks changed to ac/hs Code(s): E11.10 - TYPE 2 DIABETES MELLITUS WITH KETOACIDOSIS WITHOUT COMA (2) Abdominal pain Current Visit: Yes Status: Acute Assessment & Plan: - CT abd pelvis: Impression: 1. Mild fluid distended small bowel loops with fluid leveling. Rule out ileus versus enteritis. 2. Mild diffuse colonic fecal stasis. 3. Small fluid-filled hiatal hernia favoring GERD. 4. Chronic findings including tiny calcified uterine fibroids, arteriosclerotic disease, and degenerative spondylosis. - Pt tolerating oral intake well - Antiemetics - Likely enteritis - LUQ pain - CBC, CMP reviewed - Narcotic pain med IV PRN Code(s): R10.9 - UNSPECIFIED ABDOMINAL PAIN (3) Constipation Current Visit: Yes Status: Acute Assessment & Plan: - miralax - As seen on CT Code(s): K59.00 - CONSTIPATION, UNSPECIFIED (4) Hypophosphatasia Current Visit: Yes Status: Acute Assessment & Plan: - Phos 2.0- replaced- trend Code(s): E83.39 - OTHER DISORDERS OF PHOSPHORUS METABOLISM (5) Dehydration Current Visit: Yes Status: Resolved Assessment & Plan: - resolved Code(s): E86.0 - DEHYDRATION (6) RUBIA (acute kidney injury) Current Visit: Yes Status: Resolved Assessment & Plan: - resolved with IVF for DKA Code(s): N17.9 - ACUTE KIDNEY FAILURE, UNSPECIFIED - Discharge Discharge Date: 01/18/25 Disposition: Home, Self-Care Condition: Stable Prescriptions: Continue Levothyroxine Sodium 25 Mcg [Synthroid 25 Mcg] 50 mcg PO 2HRPRIOR Semaglutide [Rybelsus] 14 mg PO BREAKFAST Semaglutide [Ozempic] 2 mg PO WEEKLY Magnesium Oxide [Magnesium] 400 mg PO DAILY Glipizide 10 mg [Glucotrol 10 MG] 10 mg PO DAILY Gabapentin [Neurontin ] 300 mg PO BID Atorvastatin Calcium 40 mg PO DAILY Aspirin EC 81 mg [Ecotrin 81 mg] 81 mg PO DAILY Cyanocobalamin (Vitamin B-12) [Vitamin B12] 2,500 mcg PO DAILY Liraglutide [Victoza 2-Uriel] 1.8 mg SQ DAILY Dapagliflozin/Metformin HCl [Xigduo Xr 10 mg-1,000 mg Tab] 10 mg PO DAILY Lisinopril 10 mg [Zestril 10 MG] 10 mg PO DAILY Cetirizine HCl [Zyrtec] 10 mg PO DAILY Instructions: Diabetic ketoacidosis - Discharge instructions Follow up with: PIERCE JOHNS NP [NON-STAFF PHY W/O PRIVILEGES] - 01/23/25 11:00 am ALVARO AYALA [NON-STAFF PHY W/O PRIVILEGES] - 01/30/25 9:30 am Forms: Discharge Instructions
[2025-01-18 14:15] VITALS: BP 101/57; PULSE 77; RESP 15; O2SAT 98
[2025-01-18] MEDS: Miralax Powder 17GM PACKET PO ONE (14:23)
[2025-01-18] MEDS: PHARMACY DOSING REQUEST MC ONE (14:42)
[2025-01-18] MEDS: Neutra-Phos Packet PO SCH (14:47)
[2025-01-19] MEDS ORDERED: SYNTHROID 50 MCG PO SCH (06:00)
== END 2025-01-18 15:26 | disposition home or self-care (01) ==
LOC: ED 16:19 → ICU 22:13
PROVIDERS: ADMIT Internal Medicine; ATTEND Internal Medicine
DX: E11.10 Type 2 diabetes mellitus with ketoacidosis without coma (principal); R10.9 Unspecified abdominal pain; K59.00 Constipation, unspecified; E83.39 Other disorders of phosphorus metabolism; E86.0 Dehydration; N17.9 Acute kidney failure, unspecified; E11.9 Type 2 diabetes mellitus without complications; I10 Essential (primary) hypertension; E03.9 Hypothyroidism, unspecified; Z85.3 Personal history of malignant neoplasm of breast; Z79.899 Other long term (current) drug therapy
CPT/HCPCS: 36415; 74176; 80048; 80053; 81001; 82805; 82947; 83036; 83605; 83690; 83735; 84100; 84484; 85025; 85027; 93268; 96374; 96375; 96376; 99291; G0378; Q3014; 99285; J1650; J1817; J2405; J3010; A9270-GY

== ENCOUNTER 2025-02-01 06:43 | Day surgery (SDC) | payer OTHER ==
[~2025-02-01 06:43] MED LIST: XYLOCAINE 1% HCL 20 ML MDV ONE
[2025-02-01] MEDS: CEFAZOLIN 2 GM/100 ML NaCl 2 GM/100 ML IVPB IV SCH (07:00)
[2025-02-01] MEDS: Sodium Chloride 0.9% 1000 ML 1,000 ML IV STA (07:01)
[2025-02-01 07:55] LABS: ANION GAP 18.6 MEQ/L (5-15); Calcium 9.8 mg/dL (8.4-10.2); Creatinine 1 0.98 mg/dL (0.52-1.04); EST GLOMERULAR FILTRATION RATE 65.7 ML/MIN; Potassium 4.1 mmol/L (3.5-5.1)
[2025-02-01] MEDS ORDERED: XYLOCAINE 1% HCL 20 ML MDV ONE (09:04)
[2025-02-01] MEDS ORDERED: Versed 2 MG/2 ML Injection ONE (09:20)
[2025-02-01] MEDS ORDERED: SUBLIMAZE 100 MCG/2 ML ONE ×2 (09:20→10:43)
[2025-02-01] MEDS ORDERED: propofoL IV ONE (09:44)
[2025-02-01 11:21] VITALS: RESP 16
[2025-02-01 11:44] VITALS: BP 147/93; PULSE 88; TEMP 97.4; O2SAT 99
--- NOTE | 2025-02-04 08:29 | OP ---
SURGERY DATE/TIME: 02/01/2025 [id number] PREOPERATIVE DIAGNOSIS: Right carpal tunnel syndrome. POSTOPERATIVE DIAGNOSIS: Right carpal tunnel syndrome. PROCEDURE: Right carpal tunnel release. SURGEON: Siva Barnett II, DO. ANESTHESIA: [place] block. DESCRIPTION OF PROCEDURE AND FINDINGS: The patient was identified and informed consent was obtained. The patient was taken to the operative suite where the [place] block was administered by Anesthesia. Once an appropriate level of anesthesia had been obtained, the right upper extremity was then prepped and draped in the usual sterile fashion. A standard time-out was then taken. Following this, an incision was carried out from the distal wrist crease to the level of the fully abducted thumb webspace just ulnar to the thenar crease. Skin was incised. Dissection was carried out through the subcutaneous tissue. Heiss retractors were positioned proximally and distally, and dissection was then carried out through the superficial palmar fascia. The retractors were then repositioned and a Ragnell retractor was placed proximally under the skin and subcutaneous tissue. A fresh #15 knife blade was used to resect the transverse carpal ligament, which was noted to be very thickened. Care was taken to stay on the far ulnar side of the wound. Upon resecting the transverse carpal ligament, the median nerve was inspected and noted to be somewhat flattened and hourglass shaped. The motor branch was inspected and noted to be intact. The floor was inspected and there were no masses or cysts. The antebrachial fascia was then split proximally for a distance of about 2 cm such that the catalyst unit operator's fingertip could easily be placed into the canal. The wound was then copiously irrigated and closed with interrupted 5-0 nylon suture. Adaptics, 4 x 4's, and a Ursa dressing applied. The patient was then transferred to the cart and taken to recovery room in satisfactory condition having tolerated the procedure well.
== END 2025-02-01 11:50 | disposition home or self-care (01) ==
LOC: SDC 06:43
PROVIDERS: ATTEND Orthopaedic Surgery
DX: G56.01 Carpal tunnel syndrome, right upper limb (principal); E11.9 Type 2 diabetes mellitus without complications; I10 Essential (primary) hypertension
CPT/HCPCS: 36415; 64721; 80048; 82947; J0690; J2250; J2704; J3010